=== PATIENT | female | born 1990 | race Caucasian/White ===

== ENCOUNTER 2016-10-15 14:38 | Inpatient (IN) | payer OTHER ==
[2016-10-15] MEDS ORDERED: Misoprostol 200 MCG Tab PO PRN (15:00)
[2016-10-15] MEDS ORDERED: Butorphanol 1 MG/ML SDV IVPUSH PRN (15:00)
[2016-10-15] MEDS ORDERED: Lidocaine 1% 50 ML MDV INJECT PRN (15:00)
[2016-10-15] MEDS ORDERED: Water For Irrigation,Sterile 1,000 ML Container IRR PRN (15:00)
[2016-10-15] MEDS ORDERED: Sodium Chloride 0.9% 2.5 ML Syringe FLUSH PRN (15:00)
[2016-10-15] MEDS ORDERED: Sodium Chloride 0.9% 10 ML Syringe FLUSH PRN (15:00)
[2016-10-15] MEDS ORDERED: Oxytocin/Lactated Ringers 30 UNIT/500 ML BAG IV SCH ×2 (15:00→15:15)
[2016-10-15] MEDS ORDERED: Nalbuphine 10 MG/1 ML Vial IVPUSH PRN (15:00)
[2016-10-15] MEDS: Lactated Ringers 1,000 ML IV SCH ×2 (15:25→21:03)
[2016-10-15 16:00] LABS: CHLORIDE,CL 108 mmol/L (98-110); SODIUM,NA 139 mmol/L (136-146)
[2016-10-16] MEDS ORDERED: Ropivacaine HCl/PF 100 ML ONE ×2 (00:43→10:15)
[2016-10-16] MEDS ORDERED: fentaNYL 100 MCG/2 ML SDV ONE ×2 (00:43→14:21)
--- NOTE | 2016-10-16 01:11 | PCM.PREANE ---
Preanesthetic Assessment - Anesthesia/Transfusion/Family Hx Anesthesia History: No Prior Anesthesia Family History of Anesthesia Reaction: No Transfusion History: No Prior Transfusion(s) - Review of Systems General: No Symptoms Pulmonary: No Symptoms Cardiovascular: No Symptoms Gastrointestinal: No symptoms Neurological: No Symptoms Other: Reports: Anxiety - Physical Assessment NPO Status Date: 10/16/16 NPO Status Time: 01:09 (sips/chips) Height: 5 ft 7 in Weight: 166 lb ASA Class: 2 Mental Status: Alert & Oriented x3 Airway Class: Mallampati = 2 Dentition: Reports: Normal Dentition Thyro-Mental Finger Breadths: 3 Mouth Opening Finger Breadths: 3 ROM/Head Extension: Full Lungs: Clear to auscultation, Normal respiratory effort Cardiovascular: Regular Rate, Regular Rhythm - Lab Values: Laboratory Last Values WBC 10.98 K/uL (4.0-11.0) 10/15/16 15:26 RBC 4.19 M/uL (4.30-5.90) L 10/15/16 15: Hgb 12.3 g/dL (12.0-16.0) 10/15/16 15:26 Hct 36.6 % (36.0-46.0) 10/15/16 15: MCV 87.4 fL (80.0-98.0) 10/15/16 15: MCH 29.4 pg (27.0-32.0) 10/15/16 15: MCHC 33.6 g/dL (31.0-37.0) 10/15/16 15:26 RDW Std Deviation 44.7 fl (28.0-62.0) 10/15/16 15: RDW Coeff of Kimberly 14 % (11.0-15.0) 10/15/16 15: Plt Count 200 K/uL (150-400) 10/15/16 15: MPV 10.40 fL (7.40-12.00) 10/15/16 15:26 Neutrophils % (Manual) 49 % (48.0-80.0) 10/15/16 15:26 Band Neutrophils % 17 % 10/15/16 15:26 Lymphocytes % (Manual) 22 % (16.0-40.0) 10/15/16 15:26 Monocytes % (Manual) 12 % (0.0-15.0) 10/15/16 15: Nucleated RBC % 0.0 /100WBC 10/15/16: Absolute Seg Neuts 5.4 10/15/16 15: Band Neutrophils # 1.9 10/15/16 15: Lymphocytes # (Manual) 2.4 10/15/16 15: Monocytes # (Manual) 1.3 10/15/16 15: Plt Morphology Comment 10/15/16 15: Sodium 139 mmol/L (136-146) 10/15/16 15: Potassium 4.1 mmol/L (3.5-5.1) 10/15/16: Chloride 108 mmol/L (98-110) 10/15/16: Carbon Dioxide 19 mmol/L (21-31) L 10/15/16: BUN 10 mg/dL (6.0-23.0) 10/15/16: Creatinine 0.7 mg/dL (0.6-1.5) 10/15/16: Est Cr Clr Drug Dosing 97.43 mL/min 10/15/16 15: Estimated GFR (MDRD) > 60.0 ml/min 10/15/16: Glucose 75 mg/dL (60-110) 10/15/16: Uric Acid 5.1 mg/dL (2.1-6.2) 10/15/16: Calcium 9.0 mg/dL (8.8-10.8) 10/15/16: Total Bilirubin 0.3 mg/dL (0.1-1.5) 10/15/16: AST 18 IU/L (5-40) 10/15/16: ALT 11 IU/L (8-54) 10/15/16: Alkaline Phosphatase 166 (40-150) H 10/15/16: Total Protein 6.3 g/dL (6.0-8.0) 10/15/16: Albumin 3.1 g/dL (3.5-5.0) L 10/15/16: Globulin 3.2 g/dL (2.0-3.5) 10/15/16 15: Albumin/Globulin Ratio 1.0 (1.3-2.8) L 10/15/16 15:26 Blood Type A NEGATIVE 10/15/16 15:26 Antibody Screen NEGATIVE 10/15/16 15:26 - Allergies Allergies/Adverse Reactions: Allergies Allergy/AdvReac Type Severity Reaction Status Date / Time amoxicillin [Amoxicillin] Allergy Intermediate Vomiting Verified 09/28/13 09:53 - Blood Blood Available: No Product(s) Available: None - Anesthesia Plan Free Text/Narrative:: Labor Epidural - Acknowledgements Anesthesia Type Planned: Epidural Pt an Appropriate Candidate for the Planned Anesthesia: Yes Alternatives and Risks of Anesthesia Discussed w Pt/Guardian: Yes Pt/Guardian Understands and Agrees with Anesthesia Plan: Yes PreAnesthesia Questionnaire - Past Health History Medical/Surgical History: Denies Medical/Surgical History Cardiovascular History: Reports: Hypertension ( Induced HTN) - SUBSTANCE USE Tobacco Use Within Last Twelve Months: No Second Hand Smoke Exposure: No Days Per Week of Alcohol Use: 0 Recreational Drug Use History: No - HOME MEDS Home Medications: Home Meds . [No Known Home Meds] 09/28/13 [History] - CURRENT (IN HOUSE) MEDS Current Meds: Current Medications Butorphanol Tartrate (Stadol) 1 mg IVPUSH Q1H PRN PRN Reason: Pain Carboprost Tromethamine (Hemabate Ds) 250 mcg IM ASDIRECTED PRN PRN Reason: Post Hemorrhage Lactated Ringer's (Ringers, Lactated) 1,000 mls @ 150 mls/hr IV ASDIRECTED ANABEL Last Admin: 10/15/16 21:03 Dose: 150 mls/hr Oxytocin/Lactated Ringer's (Pitocin In Lr 30 Units/500 Ml) 30 unit in 500 mls @ 2 mls/hr IV TITRATE ANABEL; 2 MUNITS/MIN PRN Reason: Protocol Last Titration: 10/15/16 21:49 Dose: 18 munits/min, 18 mls/hr Lidocaine HCl (Xylocaine 1%) 50 ml INJECT .ONCE PRN PRN Reason: Laceration repair Misoprostol (Cytotec) 200 mcg PO .ONCE PRN PRN Reason: Post Hemorrhage Sodium Chloride (Saline Flush) 10 ml FLUSH ASDIRECTED PRN PRN Reason: Keep Vein Open Sodium Chloride (Saline Flush) 2.5 ml FLUSH ASDIRECTED PRN PRN Reason: Keep Vein Open Sterile Water (Sterile Water For Irrigation) 1,000 ml IRR ASDIRECTED PRN PRN Reason: delivery Discontinued Medications Fentanyl (Sublimaze) Confirm Administered Dose 100 mcg .ROUTE .STK-MED ONE Stop: 10/16/16 00:44 Oxytocin/Lactated Ringer's (Pitocin In Lr 30 Units/500 Ml) 30 unit in 500 mls @ 999 mls/hr IV TITRATE ANABEL PRN Reason: 999 MUNITS/MIN Stop: 10/15/16 15:31 Ropivacaine (Naropin 0.2%) Confirm Administered Dose 100 mls @ as directed .ROUTE .STK-MED ONE Stop: 10/16/16 00:44 Nalbuphine HCl (Nubain) 10 mg IVPUSH Q1H PRN PRN Reason: Pain (severe 7-10) Stop: 10/15/16 17:01
[2016-10-16] MEDS: Lactated Ringers 1,000 ML IV SCH ×2 (01:25→09:37)
[2016-10-16] MEDS ORDERED: Acetaminophen 500 MG Tab PO ONE (10:30)
[2016-10-16] MEDS: Carboprost Tromethamine 250 MCG/1 ML Amp IM PRN ×2 (14:05→14:25)
[2016-10-16] MEDS ORDERED: Bupivacaine 0.5% 10 ML SDV ONE (14:13)
[2016-10-16] MEDS ORDERED: ceFAZolin 2 GM in Premix Bag 1 BAG IV ONE (14:30)
[2016-10-16] MEDS ORDERED: Witch Hazel Medicated Pads 40/Jar TOP PRN (15:07)
[2016-10-16] MEDS ORDERED: Lanolin 100% Cream 7 GM Tube TOP PRN (15:07)
[2016-10-16] MEDS ORDERED: Bisacodyl 10 MG Supp RECTAL PRN (15:07)
[2016-10-16] MEDS ORDERED: Acetaminophen 500 MG Tab PO PRN (15:07)
[2016-10-16] MEDS ORDERED: Benzocaine/Menthol 20%-0.5% Spray 78 GM Cannister TOP PRN (15:07)
[2016-10-16] MEDS ORDERED: Ibuprofen 400 MG Tab PO PRN (15:07)
[2016-10-16] MEDS ORDERED: Lactated Ringers 1,000 ML IV ONE (15:21)
--- NOTE | 2016-10-16 15:30 | PCM.SN ---
- Free Text/Narrative Note: Patient delivered with laceration and post hemorrhage necessitating additional request for anesthetic by Dr. Penn. Patient rapidly assessed and care charted on the existing anesthetic record. she was treated with 0.5% bupivacaine and fentanyl. The bedside attendance was from 1415 to 1500. Then On visiting post op she was feeling faint, with senesed rpaid heart rate after she was moved and placed head up at 45 deg. I immediately place her supine and ordered a bolus of intravenous fluid. Dr. Penn was in the department and was advised. She knew pateint had hemorrhaged and will be attending to need for close evaluation .
[2016-10-16] MEDS ORDERED: Ondansetron 4 MG/2 ML SDV ONE (15:40)
[2016-10-16] MEDS ORDERED: Ondansetron 4 MG/2 ML SDV IVPUSH PRN (15:41)
[2016-10-16] MEDS: oxyCODONE 5 MG Tab PO PRN ×3 (17:52→22:49)
[2016-10-16] MEDS: Acetaminophen 500 MG Tab PO PRN ×2 (17:54→22:57)
[2016-10-16] MEDS: Docusate Sodium 100 MG Cap PO SCH (20:44)
--- NOTE | 2016-10-16 21:19 | PCM48HPAN ---
Post Anesthesia Note - EVALUATION WITHIN 48HRS OF ANESTHETIC Vital Signs in Normal Range: Yes Patient Participated in Evaluation: Yes Respiratory Function Stable: Yes Airway Patent: Yes Cardiovascular Function Stable: Yes Hydration Status Stable: Yes Pain Control Satisfactory: Yes Nausea and Vomiting Control Satisfactory: Yes Mental Status Recovered: Yes - COMMENTS/OBSERVATIONS Free Text/Narrative:: Pt denies any problems associated with epidural. VSS. Full return of sensation and motor movement to lower extremities.
--- NOTE | 2016-10-16 23:46 | OR ---
SURGEON: Glenny Penn MD DATE OF PROCEDURE: 10/16/2016 PREOPERATIVE DIAGNOSES: 1. Intrauterine at 40 weeks and 3 days. 2. Gestational hypertension. 3. Polyhydramnios. POSTOPERATIVE DIAGNOSES: 1. Intrauterine at 40 weeks and 3 days. 2. Gestational hypertension. 3. Polyhydramnios. 4. hemorrhage secondary to uterine atony. 5. Delivered. PROCEDURE: 1. Vacuum assisted vaginal delivery. 2. Repair of third degree laceration, type 3A. ANESTHESIA: Epidural. ESTIMATED BLOOD LOSS: 900 mL. DISPOSITION: Mother and baby stable in Labor and delivery. COMPLICATIONS: None. FINDINGS: Male , Wt 3990grams, Apgars 9 and 9. Grossly normal placenta with 3 vessel cord. Uterine atony. 3rd degree perineal laceration, Type 3 A, involving less than 50 % of of the external sphincter. BRIEF HISTORY AND DESCRIPTION OF PROCEDURE: The patient is a 26-year-old, G2, P0, who was admitted overnight at 40 weeks and 2 days for induction of labor secondary to late onset gestational hypertension and polyhydramnios. Evaluation for preeclampsia including HELLP was negative. GBS negative. She had presented to the clinic on a the 10th for her routine antepartum visit and had postdates biophysical profile with NST which showed polyhydramnios with DVP of 9 cm and also of note was elevated blood pressure, the highest reading was 150/120. She denied signs and symptoms of preeclampsia. She was then sent over to Labor and Delivery for induction of labor. She was 2 cm, 80% effaced, and station -2 and oxytocin infusion titration was commenced for induction of labor. Artificial rupture of membranes was performed 6 hours later, clear amniotic fluid, copious amount was noted. She received epidural for pain management and made good progress becoming fully dilated at about 6:00 a.m. this morning. She commenced pushing approximately 2 hours later after she had been allowed to labor down. She pushed for about 4 hours and 30 minute. She did bring the head down to +3 station, but at that point, she was pretty exhausted and further descent was very minimal with subsequent pushing. heart tracing remained category 1 with occasional variable decelerations during the second stage of labor. Her BP remained normotensive. Discussed vacuum assisted delivery with the patient for maternal exhaustion and she gave verbal consent to proceed.Risks that were discussed with the patient included but not limited to, infection, bleeding, increased risk of vaginal / perineal lacerations, and injury including but not limited to cephalhematoma and also a small risk of failure. The bladder had already been emptied with an indwelling catheter which was removed less than an hour earlier. Vaginal exam was performed again to confirm the position and station, the head was at +3 station, minimal caput, and LEON position. Kiwi vacuum was then applied on the flexion point of the head and with next contraction, it was activated to the green zone. Coordinated with maternal expulsive efforts, a gentle traction was applied along the pelvic curve and the head was delivered without any pop offs. There was no nuchal cord, the anterior and the posterior shoulders and the rest of the baby were delivered without difficulty. Slightly meconium stained amniotic fluid was noted at delivery. The baby was vigorous and cried spontaneously at and the baby was delivered onto the maternal abdomen with the nursery nurse attending to the baby. Dr. Middleton, the single needle operator u.s. commissioner, was attendant at delivery. With delivery of the , the oxytocin infusion was converted to titration for active management of third stage of labor. The cord was double clamped after it had ceased pulsating and was cut by the father of the baby. The placenta was then delivered by controlled cord traction, appeared to be complete and intact. With delivery of the placenta, the patient was noted to have brisk vaginal bleeding. Uterine massage was performed and the uterus was found to be atonic. I continued uterine massage and it was also noted at this time that the oxytocin was not infusing appropriately. Due to the history of prior elevated high blood pressure, I called for Hemabate to be given while I continued bimanual uterine massage. The patient was quite uncomfortable with this maneuver, so Anesthesia was called for a top off. I was able to evacuate at least almost 300 clots from the uterine cavity. I inspected the placenta, which appeared to be complete and intact. The patient received a top off and felt more comfortable at this stage, and Hemabate, first dose was given. With the dose of Hemabate, the uterus started to firm up and the bleeding started to reduce and became just about a trickle. I then examined the perineum and a third degree laceration involving less than 50% of the external sphincter was noted. Once the patient was more comfortable, I was able to do more bimanual massage of the uterus and evacuate more clots from the uterine cavity and the uterus had firmed up well. She received a second dose of Hemabate which took care of the minimal trickle that she was having. The IV had started infusing at that point, she was given IV bolusod LR and IV oxytocin was recommenced. The edges of the external sphincter were identified and grasped with Allis clamps. This was then repaired with 3-0 PDS using and end-to-end technique with three interrupted stitches. The rest of the laceration was repaired by routine technique and using 2-0 Vicryl suture for the vaginal layer, which was repaired in continuous nonlocking fashion and the perineal muscles were reapproximated with the same suture. The skin was closed with subcuticular stitches using 2-0 Vicryl suture. The repair was hemostatic. Uterine massage was performed again and the uterus was found to be well contracted below the umbilicus. Rectal exam revealed good anal tone. The patient tolerated the procedure well. Sponge, instrument, and needle counts were correct at the end. She received one dose of Ancef 2 g due to the manual evacuation of clots for prophylaxis of endometritis. A stat H and H will be drawn and we will keep a close eye on her vital signs. JONAH / ESEQUIEL /[id number] MTDD
[2016-10-17] MEDS: Ibuprofen 800 MG Tab PO PRN ×3 (04:59→21:32)
--- NOTE | 2016-10-17 08:23 | PCM.PNPP ---
- General Info Date of Service: 10/17/16 Functional Status: Reports: pain controlled, tolerating diet, ambulating, urinating - Review of Systems General: Denies: Fever, Fatigue, Malaise, Chills Pulmonary: Denies: shortness of breath, pleuritic chest pain, cough Cardiovascular: Denies: Chest Pain, Palpitations, Dyspnea on Exertion Gastrointestinal: Denies: Constipation Genitourinary: Denies: dysuria, incontinence Neurological: Denies: Dizziness, Headache Psychiatric: Denies: confusion, depression, mood lability - General Info Date of Service: 10/17/16 - Patient Data Vital Signs - most recent: Last Vital Signs Temp 36.8 C 10/17/16 08:12 Pulse 75 10/17/16 08:12 Resp 17 10/17/16 08:12 BP 117/58 L 10/17/16 08:12 Pulse Ox 98 10/17/16 08:12 Weight - most recent: 166 lb Lab Results - last 24 hrs: Laboratory Results - last 24 hr 10/16/16 10/16/16 10/17/16 Range/Units 15:08 15:08 06:12 Hgb 11.9 L 8.4 L (12.0-16.0) g/dL Hct 34.9 L 25.0 L (36.0-46.0) % Screen NEGATIVE RhIG Candidate? YES Rhogam Indicated YES, BABY RH POS H Med Orders - Current: Current Medications Acetaminophen (Tylenol Extra Strength) 500 mg PO Q4H PRN PRN Reason: Pain Acetaminophen (Tylenol Extra Strength) 1,000 mg PO Q4H PRN PRN Reason: Pain Last Admin: 10/16/16 22:57 Dose: 1,000 mg Benzocaine/Menthol (Dermoplast Pain Relief 20%-0.5% [place]) 78 gm TOP ASDIRECTED PRN PRN Reason: Perineal Comfort Measure Last Admin: 10/16/16 18:50 Dose: 1 spray Bisacodyl (Dulcolax) 10 mg RECTAL .ONCE PRN PRN Reason: Constipation Docusate Sodium (Colace) 100 mg PO BID ANABEL Last Admin: 10/16/16 20:44 Dose: 100 mg Emollient Ointment (Lansinoh Hpa) 0 gm TOP ASDIRECTED PRN PRN Reason: Sore Nipples Ibuprofen (Motrin) 400 mg PO Q4H PRN PRN Reason: Pain Ibuprofen (Motrin) 800 mg PO Q6H PRN PRN Reason: Pain Last Admin: 10/17/16 04:59 Dose: 800 mg Ondansetron HCl (Zofran) 4 mg IVPUSH ONETIME PRN PRN Reason: nausea Last Admin: 10/16/16 17:11 Dose: 4 mg Oxycodone HCl (Oxycodone) 5 mg PO Q2H PRN PRN Reason: Pain Last Admin: 10/16/16 22:49 Dose: 5 mg Witch [place] (Tucks) 1 pad TOP ASDIRECTED PRN PRN Reason: comfort care Last Admin: 10/16/16 20:45 Dose: 1 container Discontinued Medications Acetaminophen (Tylenol Extra Strength) 1,000 mg PO ONETIME ONE Stop: 10/16/16 10:31 Last Admin: 10/16/16 10:22 Dose: 1,000 mg Bupivacaine HCl (Sensorcaine-Mpf 0.5%) Confirm Administered Dose 10 ml .ROUTE .STK-MED ONE Stop: 10/16/16 14:14 Last Admin: 10/16/16 21:58 Dose: Not Given Butorphanol Tartrate (Stadol) 1 mg IVPUSH Q1H PRN PRN Reason: Pain Carboprost Tromethamine (Hemabate Ds) 250 mcg IM ASDIRECTED PRN PRN Reason: Post Hemorrhage Last Admin: 10/16/16 14:25 Dose: 250 mcg Fentanyl (Sublimaze) Confirm Administered Dose 100 mcg .ROUTE .STK-MED ONE Stop: 10/16/16 00:44 Last Admin: 10/16/16 21:57 Dose: Not Given Fentanyl (Sublimaze) Confirm Administered Dose 100 mcg .ROUTE .STK-MED ONE Stop: 10/16/16 14:22 Last Admin: 10/16/16 21:58 Dose: Not Given Ferrous Sulfate (Ferrous Sulfate) 325 mg PO TIDMEALS ANABEL Lactated Ringer's (Ringers, Lactated) 1,000 mls @ 150 mls/hr IV ASDIRECTED ANABEL Last Admin: 10/16/16 09:37 Dose: 150 mls/hr Oxytocin/Lactated Ringer's (Pitocin In Lr 30 Units/500 Ml) 30 unit in 500 mls @ 999 mls/hr IV TITRATE ANABEL PRN Reason: 999 MUNITS/MIN Stop: 10/15/16 15:31 Last Admin: 10/16/16 14:02 Dose: 999 munits/min, 999 mls/hr Oxytocin/Lactated Ringer's (Pitocin In Lr 30 Units/500 Ml) 30 unit in 500 mls @ 2 mls/hr IV TITRATE ANABEL; 2 MUNITS/MIN PRN Reason: Protocol Last Titration: 10/16/16 03:45 Dose: 26 munits/min, 26 mls/hr Ropivacaine (Naropin 0.2%) Confirm Administered Dose 100 mls @ as directed .ROUTE .[facility]-MED ONE Stop: 10/16/16 00:44 Last Admin: 10/16/16 21:57 Dose: Not Given Ropivacaine (Naropin 0.2%) Confirm Administered Dose 100 mls @ as directed .ROUTE .[employer]-MED ONE Stop: 10/16/16 10:16 Last Admin: 10/16/16 21:58 Dose: Not Given Cefazolin Sodium/Dextrose 2 gm (/ Premix) 50 mls @ 100 mls/hr IV ONETIME ONE Stop: 10/16/16 14:59 Last Admin: 10/16/16 14:49 Dose: 100 mls/hr Lactated Ringer's (Ringers, Lactated) 1,000 mls @ 1,000 mls/hr IV .BOLUS ONE Stop: 10/16/16 16:20 Last Admin: 10/16/16 21:56 Dose: Not Given Lidocaine HCl (Xylocaine 1%) 50 ml INJECT .ONCE PRN PRN Reason: Laceration repair Misoprostol (Cytotec) 200 mcg PO .ONCE PRN PRN Reason: Post Hemorrhage Nalbuphine HCl (Nubain) 10 mg IVPUSH Q1H PRN PRN Reason: Pain (severe 7-10) Stop: 10/15/16 17:01 Ondansetron HCl (Zofran) Confirm Administered Dose 4 mg .ROUTE .STK-MED ONE Stop: 10/16/16 15:41 Last Admin: 10/16/16 21:57 Dose: Not Given Sodium Chloride (Saline Flush) 10 ml FLUSH ASDIRECTED PRN PRN Reason: Keep Vein Open Sodium Chloride (Saline Flush) 2.5 ml FLUSH ASDIRECTED PRN PRN Reason: Keep Vein Open Last Admin: 10/16/16 20:33 Dose: 2.5 ml Sterile Water (Sterile Water For Irrigation) 1,000 ml IRR ASDIRECTED PRN PRN Reason: delivery Last Admin: 10/16/16 13:00 Dose: 1,000 ml - Interaction Disposition, : in Room with Family Feeding: Bottle Fed Infant Support Person: - Recovery Exam Fundal Tone: Firm Fundal Level: 1 Fingerbreadths Below Umbilicus Fundal Placement: Midline Lochia Amount: Scant Lochia Color: Rubra/Red Perineum Description: Edematous, Other (see below) Other Perinuem Description: 3rd degree laceration with repair. Episiotomy/Laceration: Approximated Bladder Status: Voiding Urinary Elimination: Voided - Exam General: alert, oriented HEENT: Pupils equal Lungs: Clear to auscultation, Normal respiratory effort Cardiovascular: Regular Rate, Regular Rhythm Abdomen: bowel sounds present, soft, no tenderness, no distension Extremities: no edema Neurological: no new focal deficit Psy/Mental Status: alert, normal affect, normal mood - Problem List & Annotations (1) Status post vacuum-assisted vaginal delivery SNOMED Code(s): 999097643, 34138150892975993 Code(s): Z87.42 - PERSONAL HISTORY OF OTH DISEASES OF THE FEMALE GENITAL TRACT Status: Acute Current Visit: Yes (2) hemorrhage SNOMED Code(s): 53435021 Code(s): O72.1 - OTHER IMMEDIATE HEMORRHAGE Status: Acute Current Visit: Yes (3) Third degree perineal laceration during delivery SNOMED Code(s): 60381859, 282344245 Code(s): O70.20 - THIRD DEGREE PERINEAL LACERATION DURING DELIVERY, UNSP Status: Acute Current Visit: Yes - Problem List Review Problem List Initiated/Reviewed/Updated: Yes - My Orders Last 24 Hours: My Active Orders 10/16/16 15:07 Patient Status [ADT] Routine May Shower [RC] ASDIRECTED Up ad [place] [RC] ASDIRECTED Vital Signs [RC] PER UNIT ROUTINE Acetaminophen [Tylenol Extra Strength] 1,000 mg PO Q4H PRN Acetaminophen [Tylenol Extra Strength] 500 mg PO Q4H PRN Benzocaine/Menthol [Dermoplast Pain Relief 20%-0.5% [place]] 78 gm TOP ASDIRECTED PRN Bisacodyl [Dulcolax] 10 mg RECTAL .ONCE PRN Ibuprofen [Motrin] 400 mg PO Q4H PRN Ibuprofen [Motrin] 800 mg PO Q6H PRN Lanolin [Lansinoh HPA] See Dose Instructions TOP ASDIRECTED PRN Witch [place] [Tucks] 1 pad TOP ASDIRECTED PRN oxyCODONE 5 mg PO Q2H PRN Assess Lochia [WOMSER] Per Unit Routine Assess Uterine Involution [WOMSER] Per Unit Routine Breast Pump [WOMSER] Per Unit Routine Peripheral IV Discontinue [OM.PC] Routine Resuscitation Status Routine 10/16/16 15:08 SCREEN [BBK] Routine RH IMMUNE GLOBULIN [BBK] Routine RHOGAM, [RHIG WORKUP, ] [BBK] Routine Perineal Care [OM.PC] Per Unit Routine 10/16/16 15:41 Ondansetron [Zofran] 4 mg IVPUSH ONETIME PRN 10/16/16 21:00 Docusate Sodium [Colace] 100 mg PO BID 10/16/16 Dinner Regular Diet [DIET] 10/17/16 09:00 Ferrous Sulfate 325 mg PO TIDMEALS - Assessment Assessment:: PPD#1 s/p VAVD, PPH and 3rd degree laceration. Hgb 8.4g/dl. Patient is hemodynamically stable. Perineal pain is well controlled and lochia minimal. - Plan Plan:: Will keep in today, continue current care. Start Ferrous sulphate Aim for discharge tomorrow
[2016-10-17] MEDS: Docusate Sodium 100 MG Cap PO SCH ×2 (08:35→21:32)
[2016-10-17] MEDS: Ferrous Sulfate 325 MG Tab PO SCH ×3 (08:35→20:07)
[2016-10-17] MEDS ORDERED: Ferrous Sulfate 325 MG Tab PO SCH (12:00)
[2016-10-18] MEDS: Ferrous Sulfate 325 MG Tab PO SCH (08:18)
[2016-10-18] MEDS: Docusate Sodium 100 MG Cap PO SCH (08:18)
[2016-10-18 08:22] VITALS: BP 126/73
[2016-10-18] MEDS: Acetaminophen 500 MG Tab PO PRN (08:22)
--- NOTE | 2016-10-18 09:32 | PCM.PNPP ---
- General Info Date of Service: 10/25/16 Functional Status: Reports: pain controlled, tolerating diet, ambulating, urinating - Review of Systems General: Denies: Fever Pulmonary: Denies: shortness of breath Cardiovascular: Denies: Chest Pain, Palpitations, Lightheadedness Gastrointestinal: Denies: Abdominal pain, Nausea, Vomiting Genitourinary: Denies: flank pain Musculoskeletal: Reports: no symptoms Skin: Reports: no symptoms - General Info Date of Service: 10/25/16 - Patient Data Vital Signs - most recent: Last Vital Signs Temp 36.3 C 10/18/16 08:19 Pulse 101 H 10/18/16 08:19 Resp 20 10/18/16 08:19 BP 126/73 10/18/16 08:19 Pulse Ox 96 10/18/16 08:19 Weight - most recent: 75.296 kg I&O - last 24 hours: Intake & Output 10/17/16 10/18/16 10/18/16 22:59 06:59 14:59 Intake Total 2 Balance 2 Lab Results - last 24 hrs: Laboratory Results - last 24 hr 10/16/16 Range/Units 15:08 Screen NEGATIVE RhIG Candidate? YES Rhogam Indicated YES, BABY RH POS H Med Orders - Current: Current Medications Acetaminophen (Tylenol Extra Strength) 500 mg PO Q4H PRN PRN Reason: Pain Acetaminophen (Tylenol Extra Strength) 1,000 mg PO Q4H PRN PRN Reason: Pain Last Admin: 10/18/16 08:22 Dose: 1,000 mg Benzocaine/Menthol (Dermoplast Pain Relief 20%-0.5% [place]) 78 gm TOP ASDIRECTED PRN PRN Reason: Perineal Comfort Measure Last Admin: 10/16/16 18:50 Dose: 1 spray Bisacodyl (Dulcolax) 10 mg RECTAL .ONCE PRN PRN Reason: Constipation Docusate Sodium (Colace) 100 mg PO BID [facility] Last Admin: 10/18/16 08:18 Dose: 100 mg Emollient Ointment (Lansinoh Hpa) 0 gm TOP ASDIRECTED PRN PRN Reason: Sore Nipples Ferrous Sulfate (Ferrous Sulfate) 325 mg PO TIDMEALS [facility] Last Admin: 10/18/16 08:18 Dose: 325 mg Ibuprofen (Motrin) 400 mg PO Q4H PRN PRN Reason: Pain Ibuprofen (Motrin) 800 mg PO Q6H PRN PRN Reason: Pain Last Admin: 10/17/16 21:32 Dose: 800 mg Ondansetron HCl (Zofran) 4 mg IVPUSH ONETIME PRN PRN Reason: nausea Last Admin: 10/16/16 17:11 Dose: 4 mg Oxycodone HCl (Oxycodone) 5 mg PO Q2H PRN PRN Reason: Pain Last Admin: 10/16/16 22:49 Dose: 5 mg Witch [place] (Tucks) 1 pad TOP ASDIRECTED PRN PRN Reason: comfort care Last Admin: 10/16/16 20:45 Dose: 1 container Discontinued Medications Acetaminophen (Tylenol Extra Strength) 1,000 mg PO ONETIME ONE Stop: 10/16/16 10:31 Last Admin: 10/16/16 10:22 Dose: 1,000 mg Bupivacaine HCl (Sensorcaine-Mpf 0.5%) Confirm Administered Dose 10 ml .ROUTE .STK-MED ONE Stop: 10/16/16 14:14 Last Admin: 10/16/16 21:58 Dose: Not Given Butorphanol Tartrate (Stadol) 1 mg IVPUSH Q1H PRN PRN Reason: Pain Carboprost Tromethamine (Hemabate Ds) 250 mcg IM ASDIRECTED PRN PRN Reason: Post Hemorrhage Last Admin: 10/16/16 14:25 Dose: 250 mcg Fentanyl (Sublimaze) Confirm Administered Dose 100 mcg .ROUTE .STK-MED ONE Stop: 10/16/16 00:44 Last Admin: 10/16/16 21:57 Dose: Not Given Fentanyl (Sublimaze) Confirm Administered Dose 100 mcg .ROUTE .STK-MED ONE Stop: 10/16/16 14:22 Last Admin: 10/16/16 21:58 Dose: Not Given Ferrous Sulfate (Ferrous Sulfate) 325 mg PO TIDMEALS ANABEL Lactated Ringer's (Ringers, Lactated) 1,000 mls @ 150 mls/hr IV ASDIRECTED ANABEL Last Admin: 10/16/16 09:37 Dose: 150 mls/hr Oxytocin/Lactated Ringer's (Pitocin In Lr 30 Units/500 Ml) 30 unit in 500 mls @ 999 mls/hr IV TITRATE ANABEL PRN Reason: 999 MUNITS/MIN Stop: 10/15/16 15:31 Last Admin: 10/16/16 14:02 Dose: 999 munits/min, 999 mls/hr Oxytocin/Lactated Ringer's (Pitocin In Lr 30 Units/500 Ml) 30 unit in 500 mls @ 2 mls/hr IV TITRATE ANABEL; 2 MUNITS/MIN PRN Reason: Protocol Last Titration: 10/16/16 03:45 Dose: 26 munits/min, 26 mls/hr Ropivacaine (Naropin 0.2%) Confirm Administered Dose 100 mls @ as directed .ROUTE .STK-MED ONE Stop: 10/16/16 00:44 Last Admin: 10/16/16 21:57 Dose: Not Given Ropivacaine (Naropin 0.2%) Confirm Administered Dose 100 mls @ as directed .ROUTE .MEPS Real-Time-MED ONE Stop: 10/16/16 10:16 Last Admin: 10/16/16 21:58 Dose: Not Given Cefazolin Sodium/Dextrose 2 gm (/ Premix) 50 mls @ 100 mls/hr IV ONETIME ONE Stop: 10/16/16 14:59 Last Admin: 10/16/16 14:49 Dose: 100 mls/hr Lactated Ringer's (Ringers, Lactated) 1,000 mls @ 1,000 mls/hr IV .BOLUS ONE Stop: 10/16/16 16:20 Last Admin: 10/16/16 21:56 Dose: Not Given Lidocaine HCl (Xylocaine 1%) 50 ml INJECT .ONCE PRN PRN Reason: Laceration repair Misoprostol (Cytotec) 200 mcg PO .ONCE PRN PRN Reason: Post Hemorrhage Nalbuphine HCl (Nubain) 10 mg IVPUSH Q1H PRN PRN Reason: Pain (severe 7-10) Stop: 10/15/16 17:01 Ondansetron HCl (Zofran) Confirm Administered Dose 4 mg .ROUTE .STK-MED ONE Stop: 10/16/16 15:41 Last Admin: 10/16/16 21:57 Dose: Not Given Sodium Chloride (Saline Flush) 10 ml FLUSH ASDIRECTED PRN PRN Reason: Keep Vein Open Sodium Chloride (Saline Flush) 2.5 ml FLUSH ASDIRECTED PRN PRN Reason: Keep Vein Open Last Admin: 10/16/16 20:33 Dose: 2.5 ml Sterile Water (Sterile Water For Irrigation) 1,000 ml IRR ASDIRECTED PRN PRN Reason: delivery Last Admin: 10/16/16 13:00 Dose: 1,000 ml - Interaction Disposition, : in Room with Family Infant Feeding: Bottle Fed Support Person: - Recovery Exam Fundal Tone: Firm Fundal Level: 1 Fingerbreadths Below Umbilicus Fundal Placement: Midline Lochia Amount: Scant Lochia Color: Rubra/Red Perineum Description: Intact, Minimal Bruising/Swelling Other Perinuem Description: 3rd degree laceration with repair. Episiotomy/Laceration: Approximated Bladder Status: Voiding Urinary Elimination: Voided - Exam General: alert, oriented Lungs: Normal respiratory effort Cardiovascular: Regular Rate, Regular Rhythm Abdomen: bowel sounds present, soft. No: CVA tenderness Extremities: no calf tenderness Skin: warm, dry, intact Psy/Mental Status: alert, normal affect - Problem List & Annotations (1) Status post vacuum-assisted vaginal delivery SNOMED Code(s): 657677813, [id number] Code(s): Z87.42 - PERSONAL HISTORY OF OTH DISEASES OF THE FEMALE GENITAL TRACT Status: Acute Current Visit: Yes - Problem List Review Problem List Initiated/Reviewed/Updated: Yes - My Orders Last 24 Hours: My Active Orders 10/18/16 09:29 Ready for Discharge [RC] PER UNIT ROUTINE - Assessment Assessment:: PPD#2 s/p VAVD, PPH and 3rd degree laceration. - Plan Plan:: Doing well overall--would like to go home today. Discharge instructions reviewed. Infection and bleeding warnings reviewed. [facility] Emphasized need for stool softeners and sitz tubs 2-3 x per day for first 7-10 days Iron supplementation--patient denies orthostatic symptoms.
== END 2016-10-18 10:45 | disposition home or self-care (01) | DRG 774 ==
LOC: MW.OBCHECK 14:38 → MW.OB 14:40 → MW.OBCHECK 15:00 → MW.OB 15:00 → OBSVTOIN 10-16 13:57 → MW.OB 10-16 20:48
PROVIDERS: ADMIT Obstetrics & Gynecology; ATTEND Obstetrics & Gynecology
PROC: 10D07Z6 Extraction of Products of Conception, Vacuum, Via Natural or Artificial Opening (ICD-10-PCS; principal; 2016-10-16)
PROC: 0DQR0ZZ Repair Anal Sphincter, Open Approach (ICD-10-PCS; 2016-10-16)
PROC: 3E033VJ Introduction of Other Hormone into Peripheral Vein, Percutaneous Approach (ICD-10-PCS; 2016-10-16)
PROC: 10907ZC Drainage of Amniotic Fluid, Therapeutic from Products of Conception, Via Natural or Artificial Opening (ICD-10-PCS; 2016-10-16)
DX: O13.4 Gestational [pregnancy-induced] hypertension without significant proteinuria, complicating childbirth (principal); O72.1 Other immediate postpartum hemorrhage; O40.3XX0 Polyhydramnios, third trimester, not applicable or unspecified; O70.20 Third degree perineal laceration during delivery, unspecified; Z3A.40 40 weeks gestation of pregnancy; Z37.0 Single live birth
CPT/HCPCS: 01967; 01996; 36415; 59025; 80053; 84550; 85014; 85018; 85027; 85460; 86850; 86900; 86901; A9270-GY; J0690; J2405; J2790; J2795; J3010; J7120

== ENCOUNTER 2016-10-18 16:22 | Emergency (ER) | payer OTHER ==
--- NOTE | 2016-10-18 16:37 | EDM.PDOC ---
ED HPI GENERAL MEDICAL PROBLEM - General Chief Complaint: Eye Problems Stated Complaint: PT HAS BLURRED VISION IN RT EYE Time Seen by Provider: 10/18/16 16:30 - History of Present Illness INITIAL COMMENTS - FREE TEXT/NARRATIVE: History of present illness: [] Patient delivered a baby 2 days ago without complication and today she developed an ocular migraine. She's had 3 ocular migraines in the past with same symptoms timeline is today but her discharge papers noted that if she sees any spots she's to come into the ED. She did not have a headache, numbness or tingling, nausea, vomiting, chest pain or dizziness. She stated that her right eye has a black spot in it which is an ocular migraine began at 5 lasting half an hour. This is her typical pattern. Patient did have high blood pressure during her and arrived with blood pressure of 152/102. She was brought back in the pressure rechecked was 130s over 90s. In her symptoms were completely resolved. Review of systems: As per history of present illness and below otherwise all systems reviewed and negative. Past medical history: As per history of present illness and as reviewed below otherwise noncontributory. Surgical history: As per history of present illness and as reviewed below otherwise noncontributory. Social history: No reported history of drug or alcohol abuse. Family history: As per history of present illness and as reviewed below otherwise noncontributory. Physical exam: General: Well developed, well nourished in NAD HEENT: Atraumatic, normocephalic, pupils reactive, negative for conjunctival pallor or scleral icterus, mucous membranes moist, throat clear, neck supple, nontender, trachea midline. Lungs: Clear to auscultation, breath sounds equal bilaterally, chest nontender. Heart: S1S2, regular, negative for clicks, rubs, or JVD. Abdomen: Soft, nondistended, nontender. Negative for masses or hepatosplenomegaly. Negative for costovertebral tenderness. Pelvis: Stable nontender. Genitourinary: Deferred. Rectal: Deferred. Extremities: Atraumatic, negative for cords or calf pain. Neurovascular unremarkable. Neuro: Awake, alert, oriented. Cranial nerves II through XII unremarkable. Cerebellum unremarkable. Motor and sensory unremarkable throughout. Exam nonfocal. Diagnostics: [] CT head is negative, urine shows no protein dysfunction is normal repeat blood pressures 120/90 and she remained asymptomatic during her ED visit the Therapeutics: [] Impression: [] Mild hypertension, ocular migraine Plan: [] Followup with OB return if symptoms worsen or change Definitive disposition and diagnosis as appropriate pending reevaluation and review of above. no pain Pain Score (Numeric/FACES): 0 - Related Data Allergies Allergy/AdvReac Type Severity Reaction Status Date / Time amoxicillin [Amoxicillin] Allergy Intermediate Vomiting Verified 10/18/16 16:33 Home Meds: Home Meds Docusate Sodium [Colace] 100 mg PO TID 10/18/16 [History] Iron,Carbonyl/Vit C/Vit B12/Fa [Iron 100 Plus Tablet] 1 each PO TID 10/18/16 [ History] Past Medical History - Past Health History Medical/Surgical History: Denies Medical/Surgical History Cardiovascular History: Reports: Hypertension ( Induced HTN) Social & Family History - Tobacco Use Years of Tobacco use: 8 Packs/Tins Daily: 1 Second Hand Smoke Exposure: No - Caffeine Use Caffeine Use: Reports: None - Alcohol Use Days Per Week of Alcohol Use: 0 - Recreational Drug Use Recreational Drug Use: No ED ROS GENERAL - Review of Systems Review Of Systems: See Below (See history of present illness) ED EXAM GENERAL W FULL EYE - Physical Exam Exam: See Below (See history of present illness) Course - Vital Signs Last Recorded V/S: Last Vital Signs Temp 36.9 C 10/18/16 16:30 Pulse 88 10/18/16 16:30 Resp 16 10/18/16 16:30 BP 152/102 H 10/18/16 16:30 Pulse Ox 98 10/18/16 16:30 - Orders/Labs/Meds Orders: Active Orders 24 hr Category Date Time Status Head wo Cont [CT] Stat Exams 10/18/16 16:38 Taken Labs: Laboratory Tests 10/18/16 10/18/16 Range/Units 16:50 17:30 Sodium 140 (136-146) mmol/L Potassium 3.9 (3.5-5.1) mmol/L Chloride 109 (98-110) mmol/L Carbon Dioxide 21 (21-31) mmol/L BUN 14 (6.0-23.0) mg/dL Creatinine 0.7 (0.6-1.5) mg/dL Est Cr Clr Drug Dosing 120.19 mL/min Estimated GFR (MDRD) > 60.0 ml/min Glucose 76 (60-110) mg/dL Calcium 8.9 (8.8-10.8) mg/dL Total Bilirubin 0.2 (0.1-1.5) mg/dL AST 33 (5-40) IU/L ALT 20 (8-54) IU/L Alkaline Phosphatase 126 (40-150) Total Protein 5.2 L (6.0-8.0) g/dL Albumin 2.7 L (3.5-5.0) g/dL Globulin 2.5 (2.0-3.5) g/dL Albumin/Globulin Ratio 1.1 L (1.3-2.8) Urine Color YELLOW Urine Appearance SLT CLOUDY Urine pH 7.0 (5.0-8.0) Ur Specific [place] 1.010 (1.001-1.035) Urine Protein NEGATIVE (NEGATIVE) mg/dL Urine Glucose (UA) NEGATIVE (NEGATIVE) mg/dL Urine Ketones NEGATIVE (NEGATIVE) mg/dL Urine Occult Blood LARGE H (NEGATIVE) Urine Nitrite NEGATIVE (NEGATIVE) Urine Bilirubin NEGATIVE (NEGATIVE) Urine Urobilinogen 0.2 (<2.0) EU/dL Ur Leukocyte Esterase LARGE (NEGATIVE) Departure - Departure Time of Disposition: 17:49 Disposition: Home, Self-Care 01 Condition: good Clinical Impression: Ocular migraine - Discharge Information Forms: ED Department Discharge Additional Instructions: The following information is given to patients seen in the emergency department who are being discharged to home. This information is to outline your options for follow-up care. We provide all patients seen in our emergency department with a follow-up referral. The need for follow-up, as well as the timing and circumstances, are variable depending upon the specifics of your emergency department visit. If you don't have a primary care physician on staff, we will provide you with a referral. We always advise you to contact your personal physician following an emergency department visit to inform them of the circumstance of the visit and for follow-up with them and/or the need for any referrals to a consulting specialist. The emergency department will also refer you to a specialist when appropriate. This referral assures that you have the opportunity for follow-up care with a specialist. All of these measure are taken in an effort to provide you with optimal care, which includes your follow-up. Under all circumstances we always encourage you to contact your private physician who remains a resource for coordinating your care. When calling for follow-up care, please make the office aware that this follow-up is from your recent emergency room visit. If for any reason you are refused follow-up, please contact the [facility] Emergency Department at and asked to speak to the emergency department charge nurse. Continue current meds as directed followup with OB return to ER if any symptoms change or worsen [facility] [address] [place] [id number] - My Orders Last 24 Hours: My Active Orders 10/18/16 16:38 Head wo Cont [CT] Stat - Assessment/Plan Last 24 Hours: My Active Orders 10/18/16 16:38 Head wo Cont [CT] Stat
[2016-10-18 17:17] LABS: CHLORIDE,CL 109 mmol/L (98-110); SODIUM,NA 140 mmol/L (136-146)
[2016-10-18 17:49] VITALS: BP 129/90
--- NOTE | 2016-10-20 15:05 | CT ---
EXAM DATE: 10/18/16 PATIENT'S AGE: 26 Patient: EBONI TAYLOR Facility: [place], [place] Site . Site : 1990 Study: CT Head [id number] 5:06:00 PM Ordering Physician: Doctor Elizabeth Final Report: INDICATION: Two days . Eye pain. Technique: CT head without IV contrast. Findings: No acute intracranial hemorrhage, edema, or mass effect. The lacrimal glands are upper limits normal to slightly prominent. Remainder negative. Impression: No acute intracranial disease. Dictated by Darin Granados MD @ Oct 18 2016 5:08PM (Electronic Signature) Report Signed by Proxy. CURLY
== END 2016-10-18 18:06 | disposition home or self-care (01) ==
LOC: MW.ED 16:22
DX: G43.809 Other migraine, not intractable, without status migrainosus (principal); I10 Essential (primary) hypertension; Z88.1 Allergy status to other antibiotic agents; Z79.899 Other long term (current) drug therapy
CPT/HCPCS: 36415; 70450; 70450-26; 80053; 81003; 99283; 99284-25

== ENCOUNTER 2021-04-22 20:32 | Emergency (ER) | payer OTHER ==
--- NOTE | 2021-04-22 20:58 | EDM.PDOC ---
ED HPI GENERAL MEDICAL PROBLEM - General Chief Complaint: Cardiovascular Problem Stated Complaint: HEART PALPITATIONS Time Seen by Provider: 04/22/21 20:52 Source of Information: Reports: Patient History Limitations: Reports: No Limitations - History of Present Illness INITIAL COMMENTS - FREE TEXT/NARRATIVE: HISTORY AND PHYSICAL: History of present illness: Patient is a 31-year-old female who presents to the emergency room with complaints of palpitations x2 days. She states yesterday she noticed while playing on her phone an episode where she felt like her heart was fluttering and racing, this lasted between 10 to 20 seconds. Did occur on and off through the day. She states she has had this happen in the past although it never lasted longer than 1 day. Today she had a few episodes again of palpitations and decided to come to the emergency room. Nothing makes the palpitations occur, declines having increase in anxiety, and does not use caffeine or stimulants. A fter the palpitations occur she says she feels fatigued and drained. Patient denies any fever, chills, headache, change in vision, syncope or near syncope. Denies any chest pain, back pain, shortness of breath or cough. Denies any GI or symptoms. No recent travel or sick contacts. Review of systems: As per history of present illness and below otherwise all systems reviewed and negative. Past medical history: As per history of present illness and as reviewed below otherwise noncontributory. Surgical history: As per history of present illness and as reviewed below otherwise noncontribut ory. Social history: See social history for further information Family history: As per history of present illness and as reviewed below otherwise noncontributory. Physical exam: General: Well developed and well nourished. Alert and orientated x 3. Nontoxic in appearance and in no acute distress. Vital signs are stable and have been reviewed by me. Nursing notes were reviewed. HEENT: Atraumatic, normocephalic, pupils equal and reactive bilaterally, negative for conjunctival pallor or scleral icterus, mucous membranes moist, TMs normal bilaterally, throat clear, neck supple, nontender, trachea midline. No drooling or trismus noted. No meningeal signs. No hot potato voice noted. Lungs: Clear to auscultation bilaterally. No wheezes, rales, or rhonchi. Chest nontender. Normal work of breathing, no accessory muscles used. Heart: S1S2, regular rate and rhythm without overt murmur, gallops, or rubs. No JVD. No peripheral edema Abdomen: Soft, nondistended, nontender. Normoactive bowel sounds. Negative for masses or costovertebral tenderness. Skin: Intact, warm, dry. No lesions or rashes noted. Hematologic: No petechiae or purpra. Mucosa appropriate color and normal nail bed color and refill. Extremities: Atraumatic, moves all extremities per self without difficulty or deficits, negative for cords or calf pain. Neurovascular unremarkable. Neuro: Awake, alert, oriented. Cranial nerves II through XII unremarkable. Cerebellum unremarkable. Motor and sensory unremarkable throughout. Exam nonfocal. Psychiatric: Mood and affect are appropriate. Normal thought process. Answering questions appropriately. Please note that the patient was seen and evaluated during the 2019 SARS-CoV-2 novel coronavirus pandemic period. Community viral transmission is ongoing at time of this encounter and the emergency department is operating under pandemic response procedures. Medical Decision Making: Patient is a 31-year-old female who presents to the emergency room with concerns of palpitations x2 days. My physical exam at this time is within normal limits. I did offer to do basic lab work along with EKG and assessing her thyroid. Declines wanting COVID-19 testing. She states she should have a test before having a chest x-ray as she is unsure if she could be . EKG shows a normal sinus rhythm with a rate of 81. No ST changes concerning for today's visit. Patient's TSH is elevated, states she has never had problems with her thyroid in the past. Will at T3 and T4 to labs. Other labs are unremarkable. Will order patient a ZIO patch to have placed. We disced medications options, will start on low dose propranolol with the intent she follows up next week with her PCP. I have talked with the patient about today's findings, in addition to providing specific details for plan of care. Reassessment at the time of disposition demonstrates that the patient is in no acute distress. The patient is stable for discharge, counseling was provided and we discussed in great detail signs and symptoms that would prompt them to return to the Emergency Department. Medication, follow up and supportive care measures were reviewed and discussed. Voices understanding and is agreeable to plan of care. Denies any further questions or concerns at this time. Diagnostics: CBC, CMP, UA, urine , TSH, chest x-ray Therapeutics: None Prescription: ZIO Patch, Propranolol Impression: Palpitations Hypothyroidism Plan: 1. You were evaluated today on an emergent basis. Your EKG shows a normal sinus rhythm. Your TSH level is high (meaning you have hypothyroidism). You need to follow up with your primary care provider to have this further worked up - possible Endocrine referral maybe needed. At this time, will put you on a low dose of Propranolol for your palpitations. This can also lower your blood pressure, so please make sure to monitor you symptoms to make sure your blood pressure doesn't drop (dizzy, lightheaded, feeling faint etc..) Please call the hospital tomorrow and ask to speak with the RT department to have a ZIO patch placed. You will wear this for max of 14 days or until it falls off. Results will be sent to Dr Penn (your PCP) and the shrinker Dr Santos. 2. Avoid any caffeinated products (soda, energy drinks, stimulants etc...). You can alternate Tylenol and ibuprofen as needed for pain and fever management. 3. We encourage you to follow up with your primary care provider and/or recommended specialist in the next few days for re-evaluation and further care/management. 4. If your symptoms should worsen, new symptoms develop or any of the signs and symptoms we discussed should arise please return to the emergency room or call 911 (if needed). Definitive disposition and diagnosis as appropriate pending reevaluation and review of above. - Related Data Allergies Allergy/AdvReac Type Severity Reaction Status Date / Time amoxicillin [Amoxicillin] Allergy Intermediate Vomiting Verified 04/25/21 21:27 Home Meds: Home Meds Propranolol HCl [Propranolol] 10 mg PO DAILY #20 tablet 04/22/21 [Rx] Past Medical History - Past Health History Medical/Surgical History: Denies Medical/Surgical History HEENT History: Reports: None Cardiovascular History: Reports: Hypertension Respiratory History: Reports: None Gastrointestinal History: Reports: None Genitourinary History: Reports: None [employer] History: Reports: Musculoskeletal History: Reports: None Neurological History: Reports: None Psychiatric History: Reports: None Endocrine/Metabolic History: Reports: None Hematologic History: Reports: None Immunologic History: Reports: None Oncologic (Cancer) History: Reports: None Dermatologic History: Reports: None - Infectious Disease History Infectious Disease History: Reports: Chicken Pox - Past Surgical History Other Musculoskeletal Surgeries/Procedures:: pectus extravatis Social & Family History - Family History Family Medical History: No Pertinent Family History - Caffeine Use Caffeine Use: Reports: None - Recreational Drug Use Recreational Drug Use: No ED ROS GENERAL - Review of Systems Review Of Systems: Comprehensive ROS is negative, except as noted in HPI. ED EXAM, GENERAL - Physical Exam Exam: See Below (See dictation) Course - Vital Signs Last Recorded V/S: Last Vital Signs Temp 98.1 F 04/22/21 20:36 Pulse 79 04/22/21 21:53 Resp 18 04/22/21 21:53 BP 120/72 04/22/21 21:53 Pulse Ox 98 04/22/21 21:53 - Orders/Labs/Meds Labs: Laboratory Tests 04/22/21 04/22/21 04/22/21 Range/Units 21:00 21:00 21:00 WBC 8.69 (4.0-11.0) K/uL RBC 4.55 (4.30-5.90) M/uL Hgb 14.2 (12.0-16.0) g/dL Hct 41.3 (36.0-46.0) % MCV 90.8 (80.0-98.0) fL MCH 31.2 (27.0-32.0) pg MCHC 34.4 (31.0-37.0) g/dL RDW Std Deviation 41.2 (28.0-62.0) fl RDW Coeff of Kimberly 12 (11.0-15.0) % Plt Count 335 (150-400) K/uL MPV 9.20 (7.40-12.00) fL Neut % (Auto) 65.0 (48.0-80.0) % Lymph % (Auto) 24.1 (16.0-40.0) % [place] % (Auto) 9.2 (0.0-15.0) % Eos % (Auto) 1.4 (0.0-7.0) % Baso % (Auto) 0.3 (0.0-1.5) % Neut # (Auto) 5.7 (1.4-5.7) K/uL Lymph # (Auto) 2.1 (0.6-2.4) K/uL [place] # (Auto) 0.8 (0.0-0.8) K/uL Eos # (Auto) 0.1 (0.0-0.7) K/uL Baso # (Auto) 0.0 (0.0-0.1) K/uL Nucleated RBC % 0.0 /100WBC Nucleated RBCs # 0 K/uL Sodium 140 (136-145) mmol/L Potassium 4.0 (3.5-5.1) mmol/L Chloride 102 (98-107) mmol/L Carbon Dioxide 28.0 (21.0-32.0) mmol/L BUN 13 (7.0-18.0) mg/dL Creatinine 0.7 (0.6-1.0) mg/dL Est Cr Clr Drug Dosing 115.32 mL/min Estimated GFR (MDRD) > 60.0 ml/min Glucose 103 (74-106) mg/dL Calcium 9.4 (8.5-10.1) mg/dL Total Bilirubin 0.4 (0.2-1.0) mg/dL AST 14 L (15-37) IU/L ALT 25 (14-63) IU/L Alkaline Phosphatase 59 (46-116) U/L Troponin I < 0.050 (0.000-0.056) ng/mL Total Protein 8.3 H (6.4-8.2) g/dL Albumin 4.2 (3.4-5.0) g/dL Globulin 4.1 H (2.6-4.0) g/dL Albumin/Globulin Ratio 1.0 (0.9-1.6) Free T4 0.96 (0.76-1.46) ng/dL Free T3 3.40 (2.18-3.98) pg/mL TSH, Ultra Sensitive 4.86 H (0.36-3.74) uIU/mL Urine Color Urine Appearance Urine pH (5.0-8.0) Ur Specific [place] (1.001-1.035) Urine Protein (NEGATIVE) mg/dL Urine Glucose (UA) (NEGATIVE) mg/dL Urine Ketones (NEGATIVE) mg/dL Urine Occult Blood (NEGATIVE) Urine Nitrite (NEGATIVE) Urine Bilirubin (NEGATIVE) Urine Urobilinogen (<2.0) EU/dL Ur Leukocyte Esterase (NEGATIVE) Urine HCG, Qual (NEGATIVE) 04/22/21 04/22/21 Range/Units 21:06 21:06 WBC (4.0-11.0) K/uL RBC (4.30-5.90) M/uL Hgb (12.0-16.0) g/dL Hct (36.0-46.0) % MCV (80.0-98.0) fL MCH (27.0-32.0) pg MCHC (31.0-37.0) g/dL RDW Std Deviation (28.0-62.0) fl RDW Coeff of Kimberly (11.0-15.0) % Plt Count (150-400) K/uL MPV (7.40-12.00) fL Neut % (Auto) (48.0-80.0) % Lymph % (Auto) (16.0-40.0) % [place] % (Auto) (0.0-15.0) % Eos % (Auto) (0.0-7.0) % Baso % (Auto) (0.0-1.5) % Neut # (Auto) (1.4-5.7) K/uL Lymph # (Auto) (0.6-2.4) K/uL [place] # (Auto) (0.0-0.8) K/uL Eos # (Auto) (0.0-0.7) K/uL Baso # (Auto) (0.0-0.1) K/uL Nucleated RBC % /100WBC Nucleated RBCs # K/uL Sodium (136-145) mmol/L Potassium (3.5-5.1) mmol/L Chloride (98-107) mmol/L Carbon Dioxide (21.0-32.0) mmol/L BUN (7.0-18.0) mg/dL Creatinine (0.6-1.0) mg/dL Est Cr Clr Drug Dosing mL/min Estimated GFR (MDRD) ml/min Glucose (74-106) mg/dL Calcium (8.5-10.1) mg/dL Total Bilirubin (0.2-1.0) mg/dL AST (15-37) IU/L ALT (14-63) IU/L Alkaline Phosphatase (46-116) U/L Troponin I (0.000-0.056) ng/mL Total Protein (6.4-8.2) g/dL Albumin (3.4-5.0) g/dL Globulin (2.6-4.0) g/dL Albumin/Globulin Ratio (0.9-1.6) Free T4 (0.76-1.46) ng/dL Free T3 (2.18-3.98) pg/mL TSH, Ultra Sensitive (0.36-3.74) uIU/mL Urine Color YELLOW Urine Appearance CLEAR Urine pH 7.0 (5.0-8.0) Ur Specific [place] 1.010 (1.001-1.035) Urine Protein NEGATIVE (NEGATIVE) mg/dL Urine Glucose (UA) NEGATIVE (NEGATIVE) mg/dL Urine Ketones NEGATIVE (NEGATIVE) mg/dL Urine Occult Blood NEGATIVE (NEGATIVE) Urine Nitrite NEGATIVE (NEGATIVE) Urine Bilirubin NEGATIVE (NEGATIVE) Urine Urobilinogen 0.2 (<2.0) EU/dL Ur Leukocyte Esterase NEGATIVE (NEGATIVE) Urine HCG, Qual NEGATIVE (NEGATIVE) Departure - Departure Time of Disposition: 21:56 Disposition: Home, Self-Care 01 Clinical Impression: Palpitation Hypothyroidism Qualifiers: Hypothyroidism type: unspecified Qualified Code(s): E03.9 - Hypothyroidism, unspecified Prescriptions: Propranolol HCl [Propranolol] 10 mg PO DAILY #20 tablet Referrals: PCP,None [Primary Care Provider] - Forms: ED Department Discharge Additional Instructions: The following information is given to patients seen in the emergency department who are being discharged to home. This information is to outline your options for follow-up care. We provide all patients seen in our emergency department with a follow-up referral. The need for follow-up, as well as the timing and circumstances, are variable depending upon the specifics of your emergency department visit. If you don't have a primary care physician on staff, we will provide you with a referral. We always advise you to contact your personal physician following an emergency department visit to inform them of the circumstance of the visit and for follow-up with them and/or the need for any referrals to a consulting specialist. The emergency department will also refer you to a specialist when appropriate. This referral assures that you have the opportunity for follow-up care with a specialist. All of these measure are taken in an effort to provide you with optimal care, which includes your follow-up. Under all circumstances we always encourage you to contact your private physician who remains a resource for coordinating your care. When calling for follow-up care, please make the office aware that this follow-up is from your recent emergency room visit. If for any reason you are refused follow-up, please contact the [facility] at and asked to speak to the emergency department charge nurse. [facility] [address] [place] [id number] [facility] [address] [place] [address] Thank you for choosing the [facility] emergency department in [place] for your medical needs today. It was a pleasure caring for you. Today you were seen in the emergency department for palpitations. Prescription for propranolol was sent to [place] [facility] 1. You were evaluated today on an emergent basis. Your EKG shows a normal sinus rhythm. Your TSH level is high (meaning you have hypothyroidism). You need to follow up with your primary care provider to have this further worked up - possible Endocrine referral maybe needed. At this time, will put you on a low dose of Propranolol for your palpitations. This can also lower your blood p ressure, so please make sure to monitor you symptoms to make sure your blood pressure doesn't drop (dizzy, lightheaded, feeling faint etc..) Please call the hospital tomorrow and ask to speak with the RT department to have a ZIO patch placed. You will wear this for max of 14 days or until it falls off. Results will be sent to Dr Penn (your PCP) and the shrinker Dr Santos. 2. Avoid any caffeinated products (soda, energy drinks, stimulants etc...). You can alternate Tylenol and ibuprofen as needed for pain and fever management. 3. We encourage you to follow up with your primary care provider and/or recommended specialist in the next few days for re-evaluation and further care/management. 4. If your symptoms should worsen, new symptoms develop or any of the signs and symptoms we discussed should arise please return to the emergency room or call 911 (if needed).
--- NOTE | 2021-04-22 20:59 | PCM.EKG ---
#1 Interpretation EKG Interpretation Comments: Heart rate = 81 bpm, normal sinus rhythm, normal QRS interval, no STEMI. EKG and rhythm strip interpreted by me at 2051
[2021-04-22 21:34] LABS: BLOOD UREA NITROGEN,BUN 13 mg/dL (7.0-18.0); CHLORIDE,CL 102 mmol/L (98-107); GLUCOSE RANDOM 103 mg/dL (74-106); SODIUM,NA 140 mmol/L (136-145)
[2021-04-22 21:54] VITALS: BP 120/72; PULSE 79
--- NOTE | 2021-04-22 21:56 | CR ---
HISTORY: Palpitations. TECHNIQUE: One view of the chest. COMPARISON: 12/19/2011. FINDINGS: Heart size and pulmonary vasculature are within normal limits. There is no acute lung infiltrate or pulmonary edema. No pneumothorax or pleural effusion. No acute bony abnormality. IMPRESSION: No lung infiltrate or pulmonary edema. Dictated by Dustin Nelson MD @ 04/22/2021 9:55:49 PM (Electronically Signed)
== END 2021-04-22 22:19 | disposition home or self-care (01) ==
LOC: MW.ED 20:32
DX: R00.2 Palpitations (principal); E03.9 Hypothyroidism, unspecified; I10 Essential (primary) hypertension; Z88.0 Allergy status to penicillin; Z79.899 Other long term (current) drug therapy
CPT/HCPCS: 36415; 71045; 71045-26; 80053; 81003; 81025; 84439; 84443; 84481; 84484; 85025; 93005; 99285-25

== ENCOUNTER 2021-04-25 20:52 | Emergency (ER) | payer OTHER ==
[2021-04-25] MEDS ORDERED: Sodium Chloride 0.9% 1,000 ML IV ONE (21:01)
[2021-04-25] MEDS ORDERED: Sodium Chloride 0.9% 10 ML Syringe FLUSH PRN (21:01)
[2021-04-25] MEDS ORDERED: Sodium Chloride 0.9% 2.5 ML Syringe FLUSH PRN (21:01)
[2021-04-25 21:57] LABS: BLOOD UREA NITROGEN,BUN 16 mg/dL (7.0-18.0); CARBON DIOXIDE,CO2 25.1 mmol/L (21.0-32.0); CHLORIDE,CL 103 mmol/L (98-107); GLUCOSE RANDOM 131 mg/dL (74-106); POTASSIUM,K 3.8 mmol/L (3.5-5.1); SODIUM,NA 138 mmol/L (136-145)
[2021-04-25] MEDS ORDERED: Iopamidol 755 MG/ML 500 ML Multipack Bottle IVPUSH STA (22:41)
--- NOTE | 2021-04-25 23:09 | CT ---
INDICATION: Shortness of breath TECHNIQUE: CT chest pulmonary PE protocol acquired wit 100 cc Isovue 370 IV contrast. COMPARISON: Chest radiograph April 22, 2021 FINDINGS: Cardiovascular structures: Normal vascular enhancement of the pulmonary arteries, no sign of pulmonary embolism. Heart size is normal. No sign of aneurysm in the thoracic aorta. Mediastinum and ciera: No mass or adenopathy. Lungs: Clear. Pleura and pericardium: No effusions. Chest wall and axilla: No mass or adenopathy. Upper abdomen: Unremarkable. Bones: Pectus excavatum. IMPRESSION: No pulmonary embolism, pneumonia, or acute intrathoracic abnormality. Pectus excavatum. Please note that all CT scans at this facility use dose modulation, iterative reconstruction, and/or weight-based dosing when appropriate to reduce radiation dose to as low as reasonably achievable. Dictated by Isis Joseph MD @ 04/25/2021 11:08:05 PM (Electronically Signed)
[2021-04-25 23:18] VITALS: BP 125/84; PULSE 89
--- NOTE | 2021-04-25 23:21 | EDM.PDOC ---
ED HPI GENERAL MEDICAL PROBLEM - General Chief Complaint: Cardiovascular Problem Stated Complaint: HEART PALPITATIONS Time Seen by Provider: 04/25/21 21:22 - History of Present Illness INITIAL COMMENTS - FREE TEXT/NARRATIVE: HISTORY AND PHYSICAL: History of present illness: This 31-year-old healthy female with no history of hypertension, diabetes, liver, lung, kidney problems who presents ER today secondary to persistent epis odes of palpitations. Patient was seen and evaluated here this week and patient has a Holter monitor in place for 14 days. Patient reports that this evening while she was watching TV she started having palpitations once again. Patient had been started on propranolol for questionable hyper/hypothyroidism and palpitations. She reports that the medication helped initially however she reports she been having persistent episode of palpitations after being on it for 2 days. After reviewing patient's labs, it appears that the patient clearly has hypothyroidism and not hyperthyroidism per her report. Patient denies any recent fevers, shakes, chills, nausea, vomiting, diarrhea, dysuria, frequency, urgency. Patient denies a new medications, other than the propranolol, foods, allergens, caffeine intake, drugs. Review of systems: As per history of present illness and below otherwise all systems reviewed and negative. Past medical history: As per history of present illness and as reviewed below otherwise noncontributory. Surgical history: As per history of present illness and as reviewed below otherwise noncontributory. Social history: No reported history of drug abuse. Family history: As per history of present illness and as reviewed below otherwise noncontributory. Physical exam: This patient was seen and evaluated during the 2019 SARS-CoV-2 novel coronavirus pandemic period. Community viral transmission is ongoing at time of this encounter and the emergency department is operating under pandemic response procedures. Constitutional: Patient is oriented to person, place, and time. Appears well- developed and well-nourished. No distress. HEENT: Moist mucous membranes Head: Normocephalic and atraumatic Eyes: Right eye exhibits no discharge. Left eye exhibits no discharge. No scleral icterus Neck: Normal range of motion. No tracheal deviation present. Cardiovascular: Normal rate and regular rhythm. Pulmonary: Effort normal, no respiratory distress. Abdominal: No distention Musculoskeletal: Normal range of motion Neurologic: Alert and oriented to person, place and time. Skin: Vincent, warm and dry. Psychiatric: Normal mood and affect. Behavior is normal. Judgment and thought content normal. Nursing note and vital signs have been reviewed Diagnostics: April 25, 2021 9:06 PM: EKG: As interpreted by ER physician: [place]: Nonspecific ST-T wave abnormalities Normal axis No evidence of ST elevation MT Normal sinus rhythm heart rate of 100 CTA reveals no significant abnormalities. TSH consistent with hypothyroidism CBC, CMP within normal limits. Covid test negative. UA normal. UDS negative. Therapeutics: [] Assessment and plan: 31-year-old female who presents ER today secondary to persistent episodes of palpitations. Patient has a Zio patch placed and has plans for follow-up with Dr. Mccullough. Patient is clinically hemodynamic stable for continued outpatient evaluation of her symptoms. Reassessment at the time of disposition demonstrates that the patient is in no acute distress. The patient has remained stable throughout the entire ED visit and is without objective evidence for acute process requiring urgent interventio n or hospitalization. The patient is stable for discharge, counseling is provided as documented above, discussed symptomatic treatment and specific conditions for return. I have spoken with the patient/caregiver and discussed todays findings, in addition to providing specific details for the plan of care. Questions are answered and there is agreement with the plan. Definitive disposition and diagnosis as appropriate pending reevaluation and review of above. - Related Data Allergies Allergy/AdvReac Type Severity Reaction Status Date / Time amoxicillin [Amoxicillin] Allergy Intermediate Vomiting Verified 04/25/21 21:27 Home Meds: Home Meds Propranolol HCl [Propranolol] 10 mg PO DAILY #20 tablet 04/22/21 [Rx] Past Medical History - Past Health History Medical/Surgical History: Denies Medical/Surgical History HEENT History: Reports: None Cardiovascular History: Reports: Hypertension, Other (See Below) Other Cardiovascular History: On Zio Patch Respiratory History: Reports: None Gastrointestinal History: Reports: None Genitourinary History: Reports: None [employer] History: Reports: Musculoskeletal History: Reports: None Neurological History: Reports: None Psychiatric History: Reports: None Endocrine/Metabolic History: Reports: None Hematologic History: Reports: None Immunologic History: Reports: None Oncologic (Cancer) History: Reports: None Dermatologic History: Reports: None - Infectious Disease History Infectious Disease History: Reports: Chicken Pox - Past Surgical History Other Musculoskeletal Surgeries/Procedures:: pectus extravatis Social & Family History - Family History Family Medical History: No Pertinent Family History - Caffeine Use Caffeine Use: Reports: None - Recreational Drug Use Recreational Drug Use: No ED ROS GENERAL - Review of Systems Review Of Systems: See Below ED EXAM, GENERAL - Physical Exam Exam: See Below Course - Vital Signs Last Recorded V/S: Last Vital Signs Temp 98.7 F 04/25/21 21:00 Pulse 102 H 04/25/21 21:00 Resp 18 04/25/21 21:00 BP 140/87 04/25/21 21:00 Pulse Ox 99 04/25/21 21:00 - Orders/Labs/Meds Orders: Active Orders 24 hr Category Date Time Status Sodium Chloride 0.9% [Saline Flush] Med 04/25/21 21:01 Active 10 ml FLUSH ASDIRECTED PRN Sodium Chloride 0.9% [Saline Flush] Med 04/25/21 21:01 Active 2.5 ml FLUSH ASDIRECTED PRN Saline Lock Insert [OM.PC] Stat Oth 04/25/21 21:01 Ordered Medication Orders Sodium Chloride (Sodium Chloride 0.9% 10 Ml Syringe) 10 ml FLUSH ASDIRECTED PRN PRN Reason: Keep Vein Open Sodium Chloride (Sodium Chloride 0.9% 2.5 Ml Syringe) 2.5 ml FLUSH ASDIRECTED PRN PRN Reason: Keep Vein Open Labs: Laboratory Tests 04/25/21 04/25/21 04/25/21 Range/Units 21:24 21:24 21:30 WBC 9.59 (4.0-11.0) K/uL RBC 5.22 (4.30-5.90) M/uL Hgb 16.3 H (12.0-16.0) g/dL Hct 47.0 H (36.0-46.0) % MCV 90.0 (80.0-98.0) fL MCH 31.2 (27.0-32.0) pg MCHC 34.7 (31.0-37.0) g/dL RDW Std Deviation 39.8 (28.0-62.0) fl RDW Coeff of Kimberly 12 (11.0-15.0) % Plt Count 404 H (150-400) K/uL MPV 9.50 (7.40-12.00) fL Neut % (Auto) 55.5 (48.0-80.0) % Lymph % (Auto) 32.0 (16.0-40.0) % [place] % (Auto) 10.1 (0.0-15.0) % Eos % (Auto) 2.0 (0.0-7.0) % Baso % (Auto) 0.4 (0.0-1.5) % Neut # (Auto) 5.3 (1.4-5.7) K/uL Lymph # (Auto) 3.1 H (0.6-2.4) K/uL [place] # (Auto) 1.0 H (0.0-0.8) K/uL Eos # (Auto) 0.2 (0.0-0.7) K/uL Baso # (Auto) 0.0 (0.0-0.1) K/uL Nucleated RBC % 0.0 /100WBC Nucleated RBCs # 0 K/uL Sodium 138 (136-145) mmol/L Potassium 3.8 (3.5-5.1) mmol/L Chloride 103 (98-107) mmol/L Carbon Dioxide 25.1 (21.0-32.0) mmol/L BUN 16 (7.0-18.0) mg/dL Creatinine 0.7 (0.6-1.0) mg/dL Est Cr Clr Drug Dosing 115.32 mL/min Estimated GFR (MDRD) > 60.0 ml/min Glucose 131 H (74-106) mg/dL Calcium 9.6 (8.5-10.1) mg/dL Magnesium 2.4 (1.8-2.4) mg/dL Total Bilirubin 0.3 (0.2-1.0) mg/dL AST 18 (15-37) IU/L ALT 25 (14-63) IU/L Alkaline Phosphatase 67 (46-116) U/L Troponin I < 0.050 (0.000-0.056) ng/mL Total Protein 8.7 H (6.4-8.2) g/dL Albumin 4.3 (3.4-5.0) g/dL Globulin 4.4 H (2.6-4.0) g/dL Albumin/Globulin Ratio 1.0 (0.9-1.6) TSH, Ultra Sensitive 5.19 H (0.36-3.74) uIU/mL Urine Color YELLOW Urine Appearance SLT CLOUDY Urine pH 5.5 (5.0-8.0) Ur Specific [place] 1.020 (1.001-1.035) Urine Protein NEGATIVE (NEGATIVE) mg/dL Urine Glucose (UA) NEGATIVE (NEGATIVE) mg/dL Urine Ketones NEGATIVE (NEGATIVE) mg/dL Urine Occult Blood NEGATIVE (NEGATIVE) Urine Nitrite NEGATIVE (NEGATIVE) Urine Bilirubin NEGATIVE (NEGATIVE) Urine Urobilinogen 0.2 (<2.0) EU/dL Ur Leukocyte Esterase MODERATE H (NEGATIVE) Urine RBC 0-2 (0-2/HPF) Urine WBC 0-3 (0-5/HPF) Ur Epithelial Cells FEW (NONE-FEW) Urine Bacteria FEW (NEGATIVE) Urine HCG, Qual (NEGATIVE) Urine Opiates Screen (NEGATIVE) Ur Oxycodone Screen (NEGATIVE) Urine Methadone Screen (NEGATIVE) Ur Barbiturates Screen (NEGATIVE) Ur Phencyclidine Scrn (NEGATIVE) Ur Amphetamine Screen (NEGATIVE) U Methamphetamines Scrn (NEGATIVE) U Benzodiazepines Scrn (NEGATIVE) U Cocaine Metab Screen (NEGATIVE) U Marijuana (THC) Screen (NEGATIVE) SARS-CoV-2 RNA ([facility]) (NEGATIVE) 04/25/21 04/25/21 04/25/21 Range/Units 21:30 21:30 21:39 WBC (4.0-11.0) K/uL RBC (4.30-5.90) M/uL Hgb (12.0-16.0) g/dL Hct (36.0-46.0) % MCV (80.0-98.0) fL MCH (27.0-32.0) pg MCHC (31.0-37.0) g/dL RDW Std Deviation (28.0-62.0) fl RDW Coeff of Kimberly (11.0-15.0) % Plt Count (150-400) K/uL MPV (7.40-12.00) fL Neut % (Auto) (48.0-80.0) % Lymph % (Auto) (16.0-40.0) % [place] % (Auto) (0.0-15.0) % Eos % (Auto) (0.0-7.0) % Baso % (Auto) (0.0-1.5) % Neut # (Auto) (1.4-5.7) K/uL Lymph # (Auto) (0.6-2.4) K/uL [place] # (Auto) (0.0-0.8) K/uL Eos # (Auto) (0.0-0.7) K/uL Baso # (Auto) (0.0-0.1) K/uL Nucleated RBC % /100WBC Nucleated RBCs # K/uL Sodium (136-145) mmol/L Potassium (3.5-5.1) mmol/L Chloride (98-107) mmol/L Carbon Dioxide (21.0-32.0) mmol/L BUN (7.0-18.0) mg/dL Creatinine (0.6-1.0) mg/dL Est Cr Clr Drug Dosing mL/min Estimated GFR (MDRD) ml/min Glucose (74-106) mg/dL Calcium (8.5-10.1) mg/dL Magnesium (1.8-2.4) mg/dL Total Bilirubin (0.2-1.0) mg/dL AST (15-37) IU/L ALT (14-63) IU/L Alkaline Phosphatase (46-116) U/L Troponin I (0.000-0.056) ng/mL Total Protein (6.4-8.2) g/dL Albumin (3.4-5.0) g/dL Globulin (2.6-4.0) g/dL Albumin/Globulin Ratio (0.9-1.6) TSH, Ultra Sensitive (0.36-3.74) uIU/mL Urine Color Urine Appearance Urine pH (5.0-8.0) Ur Specific [place] (1.001-1.035) Urine Protein (NEGATIVE) mg/dL Urine Glucose (UA) (NEGATIVE) mg/dL Urine Ketones (NEGATIVE) mg/dL Urine Occult Blood (NEGATIVE) Urine Nitrite (NEGATIVE) Urine Bilirubin (NEGATIVE) Urine Urobilinogen (<2.0) EU/dL Ur Leukocyte Esterase (NEGATIVE) Urine RBC (0-2/HPF) Urine WBC (0-5/HPF) Ur Epithelial Cells (NONE-FEW) Urine Bacteria (NEGATIVE) Urine HCG, Qual NEGATIVE (NEGATIVE) Urine Opiates Screen NEGATIVE (NEGATIVE) Ur Oxycodone Screen NEGATIVE (NEGATIVE) Urine Methadone Screen NEGATIVE (NEGATIVE) Ur Barbiturates Screen NEGATIVE (NEGATIVE) Ur Phencyclidine Scrn NEGATIVE (NEGATIVE) Ur Amphetamine Screen NEGATIVE (NEGATIVE) U Methamphetamines Scrn NEGATIVE (NEGATIVE) U Benzodiazepines Scrn NEGATIVE (NEGATIVE) U Cocaine Metab Screen NEGATIVE (NEGATIVE) U Marijuana (THC) Screen NEGATIVE (NEGATIVE) SARS-CoV-2 RNA ([facility]) NEGATIVE (NEGATIVE) Meds: Medications Generic Name Dose Route Start Last Admin Trade Name Freq PRN Reason Stop Dose Admin Sodium Chloride 10 ml 04/25/21 21:01 Sodium Chloride 0.9% 10 Ml Syringe FLUSH ASDIRECTED PRN Keep Vein Open Sodium Chloride 2.5 ml 04/25/21 21:01 Sodium Chloride 0.9% 2.5 Ml Syringe FLUSH ASDIRECTED PRN Keep Vein Open Discontinued Medications Generic Name Dose Route Start Last Admin Trade Name Freq PRN Reason Stop Dose Admin Sodium Chloride 1,000 mls @ 999 mls/hr 04/25/21 21:01 04/25/21 21:31 Normal Saline IV 04/25/21 22:01 999 mls/hr .Bolus ONE Administration Iopamidol 75 ml 04/25/21 22:41 04/25/21 22:42 Iopamidol 755 Mg/Ml 500 Ml Multipack Bottle IVPUSH 04/25/21 22:42 75 ml ONETIME STA Administration Departure - Departure Time of Disposition: 23:20 Disposition: Home, Self-Care 01 Condition: Good Clinical Impression: Palpitation Instructions: Palpitations, [id number] Referrals: Omar Mills MD [Primary Care Provider] - Additional Instructions: Your seen and evaluated in ER today secondary to palpitations. Your blood tests have all been normal except for evidence of mild hypothyroidism. Please continue taking the medications that have been prescribed for you. Please make an appointment in the morning to follow-up with Dr. Mccullough. Please return to the ER if you develop any new or concerning symptoms. The following information is given to patients seen in the emergency department who are being discharged to home. This information is to outline your options for follow-up care. We provide all patients seen in our emergency department with a follow-up referral. The need for follow-up, as well as the timing and circumstances, are variable depending upon the specifics of your emergency department visit. If you don't have a primary care physician on staff, we will provide you with a referral. We always advise you to contact your personal physician following an emergency department visit to inform them of the circumstance of the visit and for follow-up with them and/or the need for any referrals to a consulting specialist. The emergency department will also refer you to a specialist when appropriate. This referral assures that you have the opportunity for follow-up care with a specialist. All of these measure are taken in an effort to provide you with optimal care, which includes your follow-up. Under all circumstances we always encourage you to contact your private physician who remains a resource for coordinating your care. When calling for follow-up care, please make the office aware that this follow-up is from your recent emergency room visit. If for any reason you are refused follow-up, please contact the [facility] Emergency Department at and asked to speak to the emergency department charge nurse. [facility] [address] [place] [address] [place] [address] Sepsis Event Note (ED) - Evaluation Sepsis Screening Result: No Definite Risk - Focused Exam Vital Signs: Vital Signs Temp Pulse Resp BP Pulse Ox 04/25/21 21:00 98.7 F 102 H 18 140/87 99 - My Orders Last 24 Hours: My Active Orders 04/25/21 21:01 Sodium Chloride 0.9% [Saline Flush] 10 ml FLUSH ASDIRECTED PRN Sodium Chloride 0.9% [Saline Flush] 2.5 ml FLUSH ASDIRECTED PRN Saline Lock Insert [OM.PC] Stat - Assessment/Plan Last 24 Hours: My Active Orders 04/25/21 21:01 Sodium Chloride 0.9% [Saline Flush] 10 ml FLUSH ASDIRECTED PRN Sodium Chloride 0.9% [Saline Flush] 2.5 ml FLUSH ASDIRECTED PRN Saline Lock Insert [OM.PC] Stat
== END 2021-04-25 23:25 | disposition home or self-care (01) ==
LOC: MW.ED 20:52
DX: R00.2 Palpitations (principal); I10 Essential (primary) hypertension; Z88.0 Allergy status to penicillin; Z20.822 Contact with and (suspected) exposure to COVID-19; Z79.899 Other long term (current) drug therapy
CPT/HCPCS: 36415; 71275; 80053; 80305; 81001; 81025; 83735; 84443; 84484; 85025; 87635; 93005; 99285; J7030; Q9967; U0002

== ENCOUNTER 2021-12-10 15:43 | Emergency (ER) | payer OTHER ==
[2021-12-10] MEDS ORDERED: Sodium Chloride 0.9% 10 ML Syringe FLUSH PRN (15:51)
[2021-12-10] MEDS ORDERED: Sodium Chloride 0.9% 2.5 ML Syringe FLUSH PRN (15:51)
[2021-12-10] MEDS ORDERED: Sodium Chloride 0.9% 1,000 ML IV ONE (15:51)
[2021-12-10 17:07] LABS: CARBON DIOXIDE,CO2 24.7 mmol/L (21.0-32.0); POTASSIUM,K 3.6 mmol/L (3.5-5.1)
[2021-12-10 22:16] VITALS: BP 126/87; PULSE 79
== END 2021-12-10 22:14 | disposition home or self-care (01) ==
LOC: MW.ED 15:43
DX: O03.4 Incomplete spontaneous abortion without complication (principal); U07.1 COVID-19; Z88.0 Allergy status to penicillin; Z29.13 Encounter for prophylactic Rho(D) immune globulin
CPT/HCPCS: 36415; 76801; 76817; 80053; 81001; 84702; 85025; 86850; 86900; 86901; 90384; 96360; 99284; J3490; J7030; 36430; J2790

== ENCOUNTER 2022-12-12 05:11 | Inpatient (IN) | payer OTHER ==
[2022-12-12] MEDS ORDERED: Sodium Chloride 0.9% 20 ML SDV IV PRN (05:17)
[2022-12-12] MEDS ORDERED: Sodium Chloride 0.9% 2.5 ML Syringe FLUSH PRN (05:17)
[2022-12-12] MEDS ORDERED: Sodium Chloride 0.9% 10 ML Syringe FLUSH PRN (05:17)
[2022-12-12] MEDS ORDERED: Citric Acid/Sodium Citrate Solution 30 ML Cup PO ONE (05:17)
[2022-12-12] MEDS ORDERED: Oxytocin/0.9 % Sodium Chloride 30 UNIT/500 ML BAG IV SCH (05:30)
[2022-12-12] MEDS: Lactated Ringers 1,000 ML IV SCH ×3 (06:00→17:12)
[2022-12-12 06:42] LABS: HEMATOCRIT 38.2 % (36.0-46.0); HEMOGLOBIN 12.9 g/dL (12.0-16.0); MEAN CORPUSCULAR HEMOGLOBIN 30.5 pg (27.0-32.0); MEAN CORPUSCULAR HGB CONC 33.8 g/dL (31.0-37.0); MEAN CORPUSCULAR VOLUME 90.3 fL (80.0-98.0); PLATELET COUNT,PLT 189 K/uL (150-400); RED BLOOD CELL COUNT 4.23 M/uL (4.30-5.90); WHITE BLOOD CELL COUNT,WBC 9.89 K/uL (4.0-11.0)
[2022-12-12] MEDS ORDERED: Morphine 2 MG/ML SYRINGE IVPUSH PRN (06:56)
[2022-12-12] MEDS ORDERED: HYDROmorphone 1 MG/ML Syringe IVPUSH PRN (06:56)
[2022-12-12] MEDS ORDERED: Albuterol 0.083% 2.5 MG/3 ML Neb Soln NEB PRN (06:56)
[2022-12-12] MEDS ORDERED: Ondansetron 4 MG/2 ML SDV IVPUSH PRN ×2 (06:56)
[2022-12-12] MEDS ORDERED: Metoclopramide 10 MG/2 ML SDV IVPUSH PRN (06:56)
[2022-12-12] MEDS ORDERED: Naloxone 0.4 MG/ML SDV IVPUSH PRN (06:56)
[2022-12-12] MEDS ORDERED: fentaNYL 100 MCG/2 ML SDV IVPUSH PRN (06:56)
[2022-12-12] MEDS ORDERED: fentaNYL 50 MCG/ML SDV IVPUSH PRN (06:56)
[2022-12-12] MEDS ORDERED: diphenhydrAMINE 50 MG/ML SDV IVPUSH PRN ×2 (06:56→09:30)
[2022-12-12] MEDS ORDERED: droPERidol 5 MG/2 ML SDV IVPUSH PRN (06:56)
[2022-12-12] MEDS ORDERED: Acetaminophen/oxyCODONE 325-5 MG Tab PO PRN ×3 (06:56→09:30)
[2022-12-12] MEDS ORDERED: ceFAZolin 1 GM Vial ONE (07:09)
[2022-12-12] MEDS ORDERED: Phenylephrine 1% 10 MG/ML SDV ONE (07:09)
[2022-12-12] MEDS ORDERED: droPERidol 5 MG/2 ML SDV ONE (07:09)
[2022-12-12] MEDS ORDERED: fentaNYL 100 MCG/2 ML SDV ONE (07:09)
[2022-12-12] MEDS ORDERED: Ketorolac 30 MG/ML SDV ONE (07:09)
[2022-12-12] MEDS ORDERED: Dexamethasone 4 MG/ML 5 ML MDV ONE (07:09)
[2022-12-12] MEDS ORDERED: Oxytocin 10 Units/1 ML SDV ONE (07:09)
[2022-12-12] MEDS ORDERED: Morphine PF 10 MG/10 ML SDV ONE (07:09)
[2022-12-12] MEDS ORDERED: Ondansetron 4 MG/2 ML SDV ONE (07:09)
[2022-12-12] MEDS ORDERED: Ropivacaine 0.5% 5 MG/ML 30 ML SDV ONE (07:11)
[2022-12-12] MEDS ORDERED: Water For Injection, Sterile 20 ML ONE (07:14)
[2022-12-12] MEDS ORDERED: ceFAZolin 2 GM in Sodium Chloride 0.9% 100 ML IV ONE (07:23)
[2022-12-12] MEDS ORDERED: Ketorolac 30 MG/ML SDV IVPUSH SCH (09:00)
[2022-12-12] MEDS ORDERED: Methylergonovine 0.2 MG/1 ML Amp IM PRN (09:30)
[2022-12-12] MEDS ORDERED: Lactated Ringers 1,000 ML IV SCH (09:30)
[2022-12-12] MEDS ORDERED: Misoprostol 200 MCG Tab RECTAL PRN (09:30)
[2022-12-12] MEDS ORDERED: Tranexamic Acid 1,000 MG in Sodium Chloride 0.9% 100 ML IV PRN (09:30)
[2022-12-12] MEDS ORDERED: Lanolin 100% Cream 7 GM Tube TOP PRN (09:30)
[2022-12-12] MEDS ORDERED: Bisacodyl 10 MG Supp RECTAL PRN (09:30)
[2022-12-12 09:39] LABS: PH,UMBILICAL VENOUS 7.375 (7.25-7.45)
[2022-12-12] MEDS: ePHEDrine 50 MG/ML SDV IVPUSH PRN ×2 (09:52→10:17)
[2022-12-12] MEDS ORDERED: Acetaminophen 1,000 MG in Premix Bag 1 BAG IV SCH (11:00)
[2022-12-12 16:07] LABS: HEMATOCRIT 34.6 % (36.0-46.0); HEMOGLOBIN 11.6 g/dL (12.0-16.0); MEAN CORPUSCULAR HEMOGLOBIN 30.5 pg (27.0-32.0); MEAN CORPUSCULAR HGB CONC 33.5 g/dL (31.0-37.0); MEAN CORPUSCULAR VOLUME 91.1 fL (80.0-98.0); PLATELET COUNT,PLT 220 K/uL (150-400); WHITE BLOOD CELL COUNT,WBC 17.94 K/uL (4.0-11.0)
[2022-12-12 16:23] LABS: INR 0.96 (0.86-1.11)
[2022-12-12 16:27] LABS: A/G RATIO 0.7 (0.9-1.6); ALBUMIN 2.3 g/dL (3.4-5.0); BILIRUBIN TOTAL 0.3 mg/dL (0.2-1.0); CALCIUM 8.3 mg/dL (8.5-10.1); CARBON DIOXIDE,CO2 22.3 mmol/L (21.0-32.0); CREATININE 0.8 mg/dL (0.6-1.0); EST CRCL DRUG DOSING (CG) 99.99 mL/min; PROTEIN TOTAL,TP 5.5 g/dL (6.4-8.2)
[2022-12-12] MEDS: Docusate Sodium 100 MG Cap PO SCH (21:15)
[2022-12-12] MEDS: Ketorolac 30 MG/ML SDV IVPUSH SCH (21:26)
[2022-12-12] MEDS: Acetaminophen 1,000 MG in Premix Bag 1 BAG IV SCH (21:31)
[2022-12-13] MEDS: Ketorolac 30 MG/ML SDV IVPUSH SCH (03:46)
[2022-12-13] MEDS: Acetaminophen 1,000 MG in Premix Bag 1 BAG IV SCH (03:49)
[2022-12-13 05:54] LABS: BASOPHILS PERCENT AUTO 0.2 % (0.0-1.5); EOSINOPHILS ABSOLUTE AUTO 0.1 K/uL (0.0-0.7); EOSINOPHILS PERCENT AUTO 0.5 % (0.0-7.0); HEMATOCRIT 27.9 % (36.0-46.0); HEMOGLOBIN 9.2 g/dL (12.0-16.0); LYMPHOCYTES ABSOLUTE AUTO 2.5 K/uL (0.6-2.4); LYMPHOCYTES PERCENT AUTO 18.7 % (16.0-40.0); MEAN CORPUSCULAR HEMOGLOBIN 30.7 pg (27.0-32.0); MONOCYTES ABSOLUTE AUTO 1.5 K/uL (0.0-0.8); MONOCYTES PERCENT AUTO 10.9 % (0.0-15.0); NEUTROPHILS ABSOLUTE AUTO 9.4 K/uL (1.4-5.7); NEUTROPHILS PERCENT AUTO 69.7 % (48.0-80.0); PLATELET COUNT,PLT 177 K/uL (150-400); WHITE BLOOD CELL COUNT,WBC 13.47 K/uL (4.0-11.0)
[2022-12-13] MEDS: Docusate Sodium 100 MG Cap PO SCH ×2 (08:55→20:49)
[2022-12-13] MEDS: Ibuprofen 800 MG Tab PO PRN ×2 (12:13→20:49)
[2022-12-14] MEDS: Docusate Sodium 100 MG Cap PO SCH (10:16)
[2022-12-14] MEDS: Ibuprofen 800 MG Tab PO PRN (11:15)
[2022-12-14 12:35] VITALS: BP 127/77; PULSE 82
== END 2022-12-14 13:36 | disposition home or self-care (01) | DRG 787 ==
LOC: MW.OB 05:11
PROVIDERS: ADMIT Obstetrics & Gynecology; ATTEND Obstetrics & Gynecology
PROC: 10D00Z1 Extraction of Products of Conception, Low, Open Approach (ICD-10-PCS; principal; 2022-12-14)
PROC: 3E0334Z Introduction of Serum, Toxoid and Vaccine into Peripheral Vein, Percutaneous Approach (ICD-10-PCS; 2022-12-14)
DX: O26.893 Other specified pregnancy related conditions, third trimester (principal); O99.02 Anemia complicating childbirth; D62 Acute posthemorrhagic anemia; Z67.11 Type A blood, Rh negative; Z37.0 Single live birth; Z3A.39 39 weeks gestation of pregnancy; Z87.891 Personal history of nicotine dependence; Z88.0 Allergy status to penicillin
CPT/HCPCS: 36415; 80053; 82803; 85025; 85027; 85384; 85460; 85610; 85730; 86592; 86850; 86900; 86901; 86920; 86921; 86922; A9270-GY; J0131; J0690; J1100; J1200; J1790; J1885; J2274; J2370; J2405; J2590; J2790; J2795; J3010; J3490; J7120

== ENCOUNTER 2023-11-08 14:55 | Emergency (ER) | payer OTHER ==
[2023-11-08] MEDS: Ondansetron 4 MG Tab.DIS PO ONE (15:20)
[2023-11-08] MEDS: Acetaminophen/HYDROcodone 325-5 MG Tab PO ONE (15:21)
[2023-11-08] MEDS: Bacitracin Oint 1 GM U/D Packet TOP ONE (15:23)
[2023-11-08 16:38] VITALS: BP 125/87; PULSE 96
== END 2023-11-08 16:52 | disposition home or self-care (01) ==
LOC: MW.ED 14:55
DX: S01.81XA Laceration without foreign body of other part of head, initial encounter (principal); S60.512A Abrasion of left hand, initial encounter; S60.511A Abrasion of right hand, initial encounter; S80.812A Abrasion, left lower leg, initial encounter; S80.811A Abrasion, right lower leg, initial encounter; Z88.0 Allergy status to penicillin; Z75.8 Other problems related to medical facilities and other health care; V86.56XA Driver of dirt bike or motor/cross bike injured in nontraffic accident, initial encounter; Y93.89 Activity, other specified
CPT/HCPCS: 70450; 71101; 99284; A9270; 99283

== ENCOUNTER 2024-08-01 05:00 | Inpatient (IN) | payer OTHER ==
[2024-08-01] MEDS ORDERED: Sodium Chloride 0.9% 2.5 ML Syringe FLUSH PRN (05:54)
[2024-08-01] MEDS ORDERED: Sodium Chloride 0.9% 20 ML SDV IV PRN (05:54)
[2024-08-01] MEDS ORDERED: Sodium Chloride 0.9% 10 ML Syringe FLUSH PRN (05:54)
[2024-08-01] MEDS ORDERED: ceFAZolin 2 GM in Sodium Chloride 0.9% 50 ML IV ONE (05:59)
[2024-08-01] MEDS ORDERED: Oxytocin/0.9 % Sodium Chloride 30 UNIT/500 ML BAG IV SCH (06:00)
[2024-08-01 06:03] LABS: HEMATOCRIT 36.9 % (37.0-47.0); HEMOGLOBIN 12.5 g/dL (12.0-16.0); MEAN CORPUSCULAR HGB CONC 33.9 g/dL (32.0-36.0); MEAN CORPUSCULAR VOLUME 88.5 fL (83.0-99.0); MEAN PLATELET VOLUME 9.9 fL (9.4-12.3); PLATELET COUNT,PLT 195 K/uL (150-400); RED BLOOD CELL COUNT 4.17 M/uL (4.10-5.30); WHITE BLOOD CELL COUNT,WBC 9.78 K/uL (3.9-11.3)
[2024-08-01] MEDS: Lactated Ringers 1,000 ML IV SCH (06:26)
[2024-08-01] MEDS: Citric Acid/Sodium Citrate Solution 30 ML Cup PO ONE (06:45)
[2024-08-01] MEDS ORDERED: Ketorolac 30 MG/ML SDV ONE (07:12)
[2024-08-01] MEDS ORDERED: Bupivacaine 0.25% 30 ML SDV ONE (07:12)
[2024-08-01] MEDS ORDERED: Ondansetron 4 MG/2 ML SDV ONE (07:12)
[2024-08-01] MEDS ORDERED: Ropivacaine 0.5% 5 MG/ML 30 ML SDV ONE (07:12)
[2024-08-01] MEDS ORDERED: EPINEPHrine 1 MG/1 ML Amp ONE (07:12)
[2024-08-01] MEDS ORDERED: fentaNYL 100 MCG/2 ML SDV ONE (07:12)
[2024-08-01] MEDS ORDERED: ceFAZolin 1 GM Vial ONE (07:12)
[2024-08-01] MEDS ORDERED: Morphine PF 10 MG/10 ML SDV ONE (07:12)
[2024-08-01] MEDS ORDERED: Oxytocin 10 Units/1 ML SDV ONE (07:12)
[2024-08-01] MEDS ORDERED: Phenylephrine HCl In 0.9% NaCl 1 MG/10 ML Syringe ONE (07:13)
[2024-08-01] MEDS ORDERED: Nalbuphine 10 MG/1 ML Vial IVPUSH PRN (07:46)
[2024-08-01] MEDS ORDERED: Phenylephrine HCl In 0.9% NaCl 1 MG/10 ML Syringe IVPUSH PRN (07:46)
[2024-08-01] MEDS ORDERED: HYDROmorphone 1 MG/ML Syringe IVPUSH PRN (07:46)
[2024-08-01] MEDS ORDERED: ePHEDrine 50 MG/ML SDV IM PRN (07:46)
[2024-08-01] MEDS ORDERED: Morphine 2 MG/ML SYRINGE IVPUSH PRN (07:46)
[2024-08-01] MEDS ORDERED: Naloxone 0.4 MG/ML SDV IVPUSH PRN ×2 (07:46→08:51)
[2024-08-01] MEDS ORDERED: Albuterol 0.083% 2.5 MG/3 ML Neb Soln NEB PRN (07:46)
[2024-08-01] MEDS ORDERED: fentaNYL 100 MCG/2 ML SDV IVPUSH PRN (07:46)
[2024-08-01] MEDS ORDERED: Metoclopramide 10 MG/2 ML SDV IVPUSH PRN (07:46)
[2024-08-01] MEDS ORDERED: fentaNYL 50 MCG/ML SDV IVPUSH PRN (07:46)
[2024-08-01] MEDS ORDERED: Ondansetron 4 MG/2 ML SDV IVPUSH PRN ×3 (07:46→08:51)
[2024-08-01] MEDS ORDERED: diphenhydrAMINE 50 MG/ML SDV IVPUSH PRN (08:51)
[2024-08-01] MEDS ORDERED: oxyCODONE 5 MG Tab PO PRN (08:51)
[2024-08-01] MEDS ORDERED: Methylergonovine 0.2 MG/1 ML Amp IM PRN (08:51)
[2024-08-01] MEDS ORDERED: Bisacodyl 10 MG Supp RECTAL PRN (08:51)
[2024-08-01] MEDS ORDERED: Lanolin 100% Cream 7 GM Tube TOP PRN (08:51)
[2024-08-01] MEDS ORDERED: Misoprostol 200 MCG Tab RECTAL PRN (08:51)
[2024-08-01] MEDS ORDERED: Oxytocin 10 Units/1 ML SDV IM PRN (08:51)
[2024-08-01] MEDS ORDERED: Lactated Ringers 1,000 ML IV SCH (09:00)
[2024-08-01] MEDS ORDERED: Prenatal Multivitamin with Calcium/Folic Acid/Iron Tab PO SCH (09:00)
[2024-08-01] MEDS: Docusate Sodium 100 MG Cap PO SCH (09:21)
[2024-08-01 09:26] LABS: PH,UMBILICAL ARTERIAL 7.263 (7.18-7.38)
[2024-08-01 09:27] LABS: PH,UMBILICAL VENOUS 7.333 (7.25-7.45)
[2024-08-01] MEDS: Acetaminophen 1,000 MG in Premix Bag 1 BAG IV SCH (09:31)
[2024-08-01] MEDS: diphenhydrAMINE 50 MG/ML SDV IVPUSH PRN (14:18)
[2024-08-01] MEDS: Ketorolac 30 MG/ML SDV IVPUSH SCH (14:19)
[2024-08-02 06:15] LABS: HEMOGLOBIN 10.2 g/dL (12.0-16.0)
[2024-08-02] MEDS: Acetaminophen 500 MG Tab PO PRN (12:10)
[2024-08-02] MEDS: Ibuprofen 800 MG Tab PO PRN (18:23)
[2024-08-03] MEDS: Acetaminophen/oxyCODONE 325-5 MG Tab PO PRN (00:13)
[2024-08-03 08:50] VITALS: BP 115/63; PULSE 86
== END 2024-08-03 12:20 | disposition home or self-care (01) | DRG 788 ==
LOC: MW.OB 05:00
PROVIDERS: ADMIT Obstetrics & Gynecology; ATTEND Obstetrics & Gynecology
PROC: 30233S1 Transfusion of Nonautologous Globulin into Peripheral Vein, Percutaneous Approach (ICD-10-PCS; 2024-08-01)
PROC: 10D00Z1 Extraction of Products of Conception, Low, Open Approach (ICD-10-PCS; principal; 2024-08-01 08:00)
DX: O34.211 Maternal care for low transverse scar from previous cesarean delivery (principal); O13.4 Gestational [pregnancy-induced] hypertension without significant proteinuria, complicating childbirth; J45.909 Unspecified asthma, uncomplicated; O99.52 Diseases of the respiratory system complicating childbirth; O75.89 Other specified complications of labor and delivery; Q67.6 Pectus excavatum; Z3A.39 39 weeks gestation of pregnancy; Z37.0 Single live birth
CPT/HCPCS: 01961; 36415; 59025; 64488; 82803; 85014; 85018; 85027; 85460; 86592; 86850; 86900; 86901; A9270-GY; J0131; J0171; J0665; J0690; J1100; J1200; J1885; J2274; J2371; J2405; J2590; J2791; J2795; J3010; J7120